=== PATIENT | female | born 1965 | race Caucasian/White ===

== ENCOUNTER → 2016-12-08 | Outpatient (CLI) | payer MEDICARE | END | disposition home or self-care (01) | LOC: PTMAIN 08:36 | PROVIDERS: ATTEND Otolaryngology | DX: J37.0 Chronic laryngitis (principal) | CPT/HCPCS: 31579 ==

== ENCOUNTER → 2016-12-22 | Outpatient (CLI) | payer MEDICARE ==
[2016-12-22 12:04] LABS: CH 31.1; CHCM 35.7; HCT 37.9 % (34.0-46.0); HDW 2.73; HGB 13.6 gm/dL (11.4-16.0); MCH 31.4 pg (25.0-35.0); MCHC 35.9 g/dL (31.0-37.0); MCV 87.4 fL (80.0-100.0); Mean Platelet Volume 6.7; RBC 4.34 m/uL (3.80-5.40); RDW 12.8 % (11.5-15.5); WBC 8.5 k/uL (3.8-10.6)
== END | disposition home or self-care (01) ==
LOC: LABWHC1 11:31
PROVIDERS: ATTEND Otolaryngology
DX: Z01.812 Encounter for preprocedural laboratory examination (principal)
CPT/HCPCS: 85027

== ENCOUNTER 2016-12-24 09:25 | Day surgery (SDC) | payer MEDICARE ==
[2016-12-22 11:31] VITALS: BMI 25.1
--- NOTE | 2016-12-24 06:21 | HP ---
DATE OF ADMISSION: Chief complaint is chronic laryngitis. HISTORY OF PRESENT ILLNESS: This patient is a pleasant 51-year-old female who was recently seen in my office complaining of having intermittent chronic laryngitis for the past several months. The patient is a nonsmoker and has not smoked or used any tobacco products for at least 10 years. In the past the patient has undergone multiple suspension microlaryngoscopies for evaluation of possible laryngeal and also nasopharyngeal lesions and all of her biopsies were essentially unremarkable. She has a history of GERD and also clears her throat frequently. She denies any referred otalgia, but has been told that she has COPD/chronic bronchitis. At the time that the patient was seen in my office, clinical examination including indirect laryngoscopy using the ( ) headlight and mirror revealed evidence of suspicious changes on both true vocal cords which resembled so-called pachydermia and in addition to this, there appeared to be a small cystic lesion located in the interarytenoid area. This cystic lesion was not visible except briefly on the examination. Because of the patient's past history of smoking it was recommended that she undergo a suspension microlaryngoscopy with biopsy of these lesions. Past medical history reveals that the patient has a known allergy to AMOXICILLIN and AUGMENTIN. Her current medications include [place], Flexeril, atenolol, Celexa, Elavil, Synthroid, and Crestor. Review of system reveals that the cardiovascular system is positive for hypertension. Respiratory system is positive for COPD/chronic bronchitis. Gastrointestinal system is positive for suspected GERD. Metabolic/endocrine system is positive for hypercholesterolemia and hypothyroidism. Musculoskeletal system is positive for osteoarthritis. Remainder of the review of systems is unremarkable. Previous surgeries include suspension microlaryngoscopy x3, triple upper endoscopy which included a suspension microlaryngoscopy, rigid esophagoscopy, and a rigid bronchoscopy, examination of the nasopharynx under anesthesia, foot surgery, D&C x2, lower back laminectomy, cholecystectomy. The patient ( ) , 3 C-sections, and 4 miscarriages. In addition to this, the patient has a history of fibromyalgia. PHYSICAL EXAMINATION: This patient is a 51-year-old female who is alert and cooperative. HEENT EXAMINATION: Patient is normocephalic. Tympanic membranes are normal. Middle ear spaces are free of any fluid or infection. Pupils equal, round, and reactive to light and accommodation. Extraocular movements are within normal limits. Intranasal examination reveals moderate to severe septal deviation with compensatory hypertrophy of the inferior turbinates and a moderate amount of mucus on the mucous membranes and draining down the posterior pharynx. Examination of oropharynx is essentially unremarkable. The findings of the examination of the hypopharynx and larynx are as described above in the history of present illness and will not be repeated here. Palpation of the neck, cranial nerves 2 through 12 and the remainder of the head and neck exam are all within normal limits. CHEST/CARDIOVASCULAR: Both lung tinajero are clear to percussion and auscultation. The patient is in regular sinus rhythm. S1 and S2 are present without evidence of any murmurs, S3s or S4s. Peripheral pulses are bilaterally symmetrical and within normal limits. ABDOMEN: There is no evidence of any masses, megaly or tenderness. The abdomen is soft. Skin is unremarkable. Musculoskeletal and neurological are within normal limits. PELVIC/RECTAL EXAM: The pelvic/rectal exam is deferred at this time because the patient has this done a regular basis at her family physician's office. The remainder of physical exam is essentially unremarkable. IMPRESSION: Chronic laryngitis, suspect laryngeal lesions. PLAN: The patient is scheduled undergo a suspension microlaryngoscopy with laryngeal biopsies. ATTENTION RNS IN THE PRESURGICAL AREA: I have not ordered any presurgical prophylactic antibiotics for this patient. If the pharmacy department sends any presurgical prophylactic antibiotics to the presurgical area for this patient they should be returned to the pharmacy and make sure that the patient's account is credited appropriately. The only medication that I have ordered for this patient to receive presurgically is 1000 mg of Ofirmev IV, to be given once an intravenous line has been established. I have explained the operation/procedure to the patient, including the risks, benefits, side effects, alternative therapies (including not receiving the proposed treatment or service), the likelihood of the patient achieving his/her goals, and potential recuperation problems for the procedure/sedation/analgesia, as well as any blood products, if indicated. I also explained to the patient the risks, benefits, and side effects of the alternatives, as well as the risks related to not receiving the proposed procedure, care treatment or services.
[~2016-12-24 09:25] MED LIST: DEXAMETHASONE SOD PHOSPHATE 10 MG/ML 1 ML VIAL IV ONE; HYDROmorphone 1 MG/ML 1 ML SYRINGE IVP PRN; LACTATED RINGERS 1,000 ML IV SCH; ONDANSETRON 4 MG/2 ML VIAL IVP ONE; Pre Op ABX Message 1 EACH MISC MISCELLANE ONE
[2016-12-24 10:16] LABS: Glucose,Whole Blood 108 mg/dL (75-99)
[2016-12-24] MEDS ORDERED: ACETAMINOPHEN IV (For NPO) 1,000 MG in EMPTY BAG 1 BAG IVPB ONE (10:30)
--- NOTE | 2016-12-24 11:21 | HP ---
DATE OF ADMISSION: ADDENDUM: PLAN: This patient is scheduled for a suspension microlaryngoscopy with biopsy of laryngeal lesions and CO2 laser of laryngeal lesions under general anesthesia. I have explained the operation/procedure to the patient, including the risks, benefits, side effects, alternative therapies (including not receiving the proposed treatment or service), the likelihood of the patient achieving his/her goals, and potential recuperation problems for the procedure/sedation/analgesia, as well as any blood products, if indicated. I also explained to the patient the risks, benefits, and side effects of the alternatives, as well as the risks related to not receiving the proposed procedure, care treatment or services.
[2016-12-24] MEDS ORDERED: DEXAMETHASONE SOD PHOS (MDV) 100 MG/10 ML VIAL ONE (12:04)
[2016-12-24] MEDS ORDERED: PROPOFOL 10 MG/ML 20 ML VIAL IV ONE (12:04)
[2016-12-24] MEDS ORDERED: SUCCINYLCHOLINE CHLORIDE 100 MG/5 ML SYR IV ONE (12:04)
[2016-12-24] MEDS ORDERED: fentaNYL (PF) 50 MCG/ML 2 ML AMP ONE (12:04)
[2016-12-24] MEDS ORDERED: LIDOCAINE 1% INJ 10MG/ML (20 ML MDV) ONE (12:04)
[2016-12-24] MEDS ORDERED: GLYCOPYRROLATE 0.2 MG/ML 2 ML VIAL ONE (12:04)
[2016-12-24] MEDS ORDERED: MIDAZOLAM 2 MG/2 ML VIAL ONE (12:04)
[2016-12-24 13:24] VITALS: TEMP 97.4
[2016-12-24 14:03] VITALS: RESP 16
[2016-12-24 14:46] VITALS: BP 130/76; PULSE 73
--- NOTE | 2016-12-28 08:35 | OP ---
DATE OF SERVICE: 12/24/2016 SURGEON: NGUYỄN QUIJANO MD SAMPLER TESTER: PREOPERATIVE DIAGNOSIS: Chronic laryngitis with lesions of the right and left true vocal cord. POSTOPERATIVE DIAGNOSIS: Chronic laryngitis with lesions of the right and left true vocal cord. OPERATION: Suspension microlaryngoscopy with biopsy of the right and left true vocal cord and CO2 laser ( ) of lesions of the right and left true vocal cord under general anesthesia. ANESTHESIA: General. ESTIMATED BLOOD LOSS: SPECIMENS REMOVED: COMPLICATIONS: None. OPERATIVE FINDINGS: DESCRIPTION OF PROCEDURE: The patient was placed on the operating table in the supine position. After uneventful induction and endotracheal intubation, satisfactory general anesthesia was obtained. Next, the patient was draped in the usual and customary fashion, following which the laryngoscope was then introduced into the patient's oropharynx and the entire hypopharynx, including the right and left piriform sinus, base of tongue, vallecula, epiglottis, were inspected and found to be free of any suspicious lesions. Next, the base of tongue was inspected and felt to be free of any suspicious lesions. Next, the tip of the laryngoscope was placed at the laryngeal introitus and advanced thus exposing both the right and left true vocal cords. Next, the Lewy apparatus was attached to the handle of the laryngoscope and the laryngoscope was suspended on the patient's chest. Next, using the Zeiss microscope and under magnified visualization, one could see that there was significant white plaques on the right and left true vocal cords. This has the appearance of pachydermia. Therefore, using a pair of microlaryngeal up-biting forceps, the right and left true vocal cords were biopsied in multiple spots respectively. The specimen was sent to pathology in formalin for permanent sectioning. Next, using the CO2 laser on the appropriate setting, the lesions on the right and left true vocal cord were vaporized in the usual and customary fashion. The patient was given 10 mg of Decadron intraoperatively to reduce any laryngeal edema. At this point, the procedure was terminated. There were no intraoperative complications. The patient tolerated the procedure well and was returned to the recovery room in satisfactory condition.
== END 2016-12-24 14:53 | disposition home or self-care (01) ==
LOC: OR 09:25
PROVIDERS: ATTEND Otolaryngology
DX: J37.0 Chronic laryngitis (principal); K21.9 Gastro-esophageal reflux disease without esophagitis; J38.7 Other diseases of larynx; I10 Essential (primary) hypertension; J42 Unspecified chronic bronchitis; E03.9 Hypothyroidism, unspecified; E78.00 Pure hypercholesterolemia, unspecified; M79.7 Fibromyalgia; M19.90 Unspecified osteoarthritis, unspecified site; J44.9 Chronic obstructive pulmonary disease, unspecified; Z79.899 Other long term (current) drug therapy; Z79.891 Long term (current) use of opiate analgesic; Z88.1 Allergy status to other antibiotic agents; Z88.0 Allergy status to penicillin; K13.29 Other disturbances of oral epithelium, including tongue
CPT/HCPCS: 31536; 88305; J2250; J1100 ×2; J2405; J2001; J3010; J0131; J0330; J2704

== ENCOUNTER 2018-02-01 20:40 | Emergency (ER) | payer MEDICARE ==
[2018-02-01 21:34] VITALS: BP 108/65; PULSE 103; RESP 18; TEMP 98.4
--- NOTE | 2018-02-01 22:58 | ED ---
General Adult HPI - General Chief complaint: Animal Bite Stated complaint: cat bite/infection Time Seen by Provider: 02/01/18 22:30 Source: patient, RN notes reviewed Mode of arrival: ambulatory Limitations: no limitations - History of Present Illness Initial comments: 52-year-old female presents to the emergency department for a chief complaint of cat bite to the left calf. Patient states this happened one day ago. Patient states has been draining somewhat and has been getting red. Patient denies fevers or chills at home. Patient denies feeling lethargic. Patient denies pain in the knee or ankle. Patient states her cat is an indoor cat and she can monitor it for 10 days. Cat has never been outside. Patient has no other complaints at this time including shortness of breath, chest pain, abdominal pain, nausea or vomiting, headache, or visual changes. - Related Data Home Medications Medication Instructions Recorded Confirmed Atenolol [Tenormin] 25 mg PO BID 02/20/14 12/24/16 Citalopram Hydrobromide [CeleXA] 40 mg PO DAILY 02/20/14 12/24/16 Cyclobenzaprine [Flexeril] 10 mg PO TID 02/20/14 12/24/16 Amitriptyline HCl [Elavil] 100 mg PO HS 07/12/15 12/24/16 Levothyroxine Sodium [Synthroid] 100 mcg PO DAILY 07/12/15 12/24/16 Omeprazole [PriLOSEC] 20 mg PO DAILY 07/12/15 12/24/16 Atorvastatin [Lipitor] 80 mg PO HS 01/25/16 12/24/16 HYDROcodone/APAP 7.5-325MG [[place] 1 tab PO BID PRN 01/25/16 12/24/16 7.5-325] Previous Rx's Medication Instructions Recorded Albuterol Nebulized [Ventolin 2.5 mg INHALATION RT-Q4H PRN #0 07/14/15 Nebulized] nebu Azithromycin [Zithromax Z-pack] 250 mg PO DIRECTED #6 tab NS 12/24/16 HYDROcodone/APAP 5-325MG [[place] 1 tab PO Q4HR PRN #20 tab NS 12/24/16 5-325] Doxycycline [Vibramycin] 100 mg PO Q12HR 14 Days capsule 02/01/18 Allergies Allergy/AdvReac Type Severity Reaction Status Date / Time amoxicillin [Amoxicillin] Allergy Intermediate SOB and Verified 02/01/18 21:31 rash amoxicillin trihydrate Allergy Rash/Hives, Verified 02/01/18 21:31 [From Augmentin] SOB potassium clavulanate Allergy Rash/Hives, Verified 02/01/18 21:31 [From Augmentin] and SOB Review of Systems ROS Statement: Those systems with pertinent positive or pertinent negative responses have been documented in the HPI. ROS Other: All systems not noted in ROS Statement are negative. Past Medical History Past Medical History: GERD/Reflux, Hyperlipidemia, Hypertension, Respiratory Disorder, Thyroid Disorder Additional Past Medical History / Comment(s): Emphysema; hypoglycemic- diet controlled History of Any Multi-Drug Resistant Organisms: None Reported Past Surgical History: Back Surgery, Section, Cholecystectomy, Orthopedic Surgery Additional Past Surgical History / Comment(s): back surgery x3, throat sugery x4 , x3, carpal tunnel release Past Anesthesia/Blood Transfusion Reactions: No Reported Reaction Past Psychological History: Anxiety, Depression Smoking Status: Former smoker Past Alcohol Use History: None Reported Past Drug Use History: None Reported - Past Family History Mother Family Medical History: No Reported History General Exam Limitations: no limitations General appearance: alert, in no apparent distress Head exam: Present: atraumatic, normocephalic, normal inspection Eye exam: Present: normal appearance ENT exam: Present: normal exam, mucous membranes moist Neck exam: Present: normal inspection, full ROM. Absent: tenderness, meningismus, lymphadenopathy Respiratory exam: Present: normal lung sounds bilaterally. Absent: respiratory distress, wheezes, rales, rhonchi, stridor Cardiovascular Exam: Present: regular rate, normal rhythm, normal heart sounds. Absent: systolic murmur, diastolic murmur, rubs, gallop, clicks Extremities exam: Present: full ROM (Full range of motion of the left knee and left ankle.), tenderness (Minor tenderness to the Bites.), other (Patient has 2 Bites on the posterior left calf that appear to be infected. Mild cellulitis about 4 cm x 4 cm. No abscess is noted. No streaking redness.) Course Vital Signs 02/01/18 21:32 Temperature 98.4 F Pulse Rate 103 H Respiratory 18 Rate Blood Pressure 108/65 O2 Sat by Pulse 95 Oximetry Medical Decision Making - Medical Decision Making 52-year-old female process to the emergency department for chief complaint Bite 2 days. Patient was bit by her cat yesterday. She states it has gotten more red since that time. No fevers or chills at home. On exam patient does have a mild cellulitis about 4 cm x 4 cm. 2 Bites are noted on the left posterior calf. No drainage at this time. No signs of abscesses or streaking redness. No pain in the knee or ankle. Cellulitis was circled with a marker for patient. She is ALLERGIC to penicillin so was given doxycycline. Patient was educated to return to the emergency Department if the redness began spreading past the marking, or if she has fevers or worsening symptoms. Otherwise she will follow- up with primary care. Patient was contacted after departure to notify her that she did not receive her tetanus shot. Patient will return to the emergency department tomorrow or to her primary care doctor for the shot. Disposition Clinical Impression: Cat bite, Cellulitis Disposition: HOME SELF-CARE Condition: Good Instructions: Animal Bite (ED) Additional Instructions: Please take antibiotic as directed. Please monitor for spreading redness or streaking redness up the leg and return if these occur. Return if you develop fever. No motrin or tylenol for pain. Follow up with primary care in 1-2 days. Prescriptions: Doxycycline [Vibramycin] 100 mg PO Q12HR 14 Days capsule Is patient prescribed a controlled substance at d/c from ED?: No Referrals: Aarti Blackwell MD [Primary Care Provider] - 1-2 days Time of Disposition: 22:55
== END 2018-02-01 23:05 | disposition home or self-care (01) ==
LOC: EC 20:40
DX: S81.852A Open bite, left lower leg, initial encounter (principal); L03.116 Cellulitis of left lower limb; K21.9 Gastro-esophageal reflux disease without esophagitis; E78.5 Hyperlipidemia, unspecified; I10 Essential (primary) hypertension; E07.9 Disorder of thyroid, unspecified; F41.9 Anxiety disorder, unspecified; F32.9 Major depressive disorder, single episode, unspecified; Z87.891 Personal history of nicotine dependence; Z98.890 Other specified postprocedural states; Z79.899 Other long term (current) drug therapy; Z88.0 Allergy status to penicillin; W55.01XA Bitten by cat, initial encounter
CPT/HCPCS: 99283

== ENCOUNTER → 2018-11-13 | Outpatient (CLI) | payer MEDICARE ==
--- NOTE | 2018-11-13 11:36 | XR ---
Cervical spine HISTORY: Neck pain 5 views of the cervical spine There is no significant foraminal encroachment on oblique views. There is multilevel facet arthropath y present. Cervical vertebral bodies show preserved height and alignment. There is mild multilevel sp ondylosis. Loss of disc height present at C5-6. Straightening of the normal cervical lordosis may be due to muscle spasm. Prevertebral soft tissues are normal. Patient is edentulous. Suspect an underlyi ng scoliosis in the thoracic spine. IMPRESSION: Degenerative disc disease. Facet arthropathy. Additional findings above.
== END | disposition home or self-care (01) ==
LOC: RADXRMAIN 10:54
PROVIDERS: ATTEND Physical Medicine & Rehabilitation
DX: M50.30 Other cervical disc degeneration, unspecified cervical region (principal); M47.812 Spondylosis without myelopathy or radiculopathy, cervical region; M46.92 Unspecified inflammatory spondylopathy, cervical region
CPT/HCPCS: 72050

== ENCOUNTER → 2018-12-14 | Outpatient (CLI) | payer MEDICARE ==
--- NOTE | 2018-12-14 15:10 | CT ---
EXAMINATION TYPE: CT chest wo con DATE OF EXAM: 12/14/2018 COMPARISON: None HISTORY: RUQ/CHEST PAIN WITH INSPIRATION CT DLP: 760.3 mGycm, Automated exposure control for dose reduction was used. CONTRAST: None TECHNIQUE: Axial images were obtained at 1 mm thick sections at 10 mm intervals. This will limit po rtions of the examination which may not be visualized within the [id number]. Images were obtained in the prone and supine views. FINDINGS: Portion of the thyroid visualized is normal. No suspicious lung nodules or focal infiltrat es are present. Emphysematous changes are present within the lung tinajero. No enlarged mediastinal or hilar adenopathy is evident. The ascending aorta diameter at the level o f the main pulmonary artery is 3.5 cm. The main pulmonary artery diameter at the bifurcation is 2.5 cm. Minimal coronary artery calcification is noted. Limited CT sections are obtained through the upper abdomen. Abdomen is essentially unremarkable. IMPRESSIONS: 1. Emphysematous changes compatible COPD.
== END ==
LOC: RADCTMAIN 13:06
PROVIDERS: ATTEND Internal Medicine
DX: J43.9 Emphysema, unspecified (principal)
CPT/HCPCS: 71250

== ENCOUNTER 2019-10-11 14:13 | Inpatient (IN) | payer MEDICARE ==
[2019-10-11] MEDS ORDERED: VANCOMYCIN IV PER PHARMACY 1 EACH MISC MISCELLANE PRN (14:17)
[2019-10-11] MEDS ORDERED: HYDROcodone/APAP 7.5-325MG 1 EACH TAB PO PRN (15:24)
[2019-10-11] MEDS ORDERED: VANCOMYCIN 1,500 MG in SODIUM CHLORIDE 0.9% 250 ML IVPB ONE (15:30)
[2019-10-11] MEDS: HYDROcodone/APAP 7.5-325MG 1 EACH TAB PO PRN ×2 (15:41→22:01)
[2019-10-11 16:27] LABS: African American GFR (CKD) >90 (>60 ml/min/1.73 sqM); Anion Gap 7 mmol/L; Blood Urea Nitrogen 8 mg/dL (7-17); Calcium 9.4 mg/dL (8.4-10.2); Carbon Dioxide 28 mmol/L (22-30); Chloride 102 mmol/L (98-107); Glucose 99 mg/dL (74-99); Non-African American GFR(CKD) 84 (>60 ml/min/1.73 sqM); Potassium 4.3 mmol/L (3.5-5.1); Sodium 137 mmol/L (137-145)
[2019-10-11] MEDS: HYDROmorphone 0.5 MG/0.5 ML SYRINGE IVP PRN ×2 (17:47→23:37)
[2019-10-11 20:08] LABS: Basophils % (A) 0 %; Eosinophils # (A) 0.2 k/uL (0-0.7); Eosinophils % (A) 1 %; HCT 39.1 % (34.0-46.0); HGB 13.2 gm/dL (11.4-16.0); Lymphocytes # (A) 3.1 k/uL (1.0-4.8); Lymphocytes % (A) 28 %; MCHC 33.7 g/dL (31.0-37.0); MCV 91.7 fL (80.0-100.0); Monocytes # (A) 0.7 k/uL (0-1.0); Monocytes % (A) 6 %; Neutrophils # (A) 6.8 k/uL (1.3-7.7); Neutrophils % (A) 62 %; Platelet Count 357 k/uL (150-450); RBC 4.26 m/uL (3.80-5.40); RDW 13.1 % (11.5-15.5); WBC 11.1 k/uL (3.8-10.6)
[2019-10-11] MEDS ORDERED: BUTALB/APAP/CAFF 50-325-40MG TAB PO PRN (20:59)
[2019-10-11] MEDS ORDERED: SUMAtriptan SUCCINATE 50 MG TAB PO PRN (20:59)
--- NOTE | 2019-10-11 22:01 | P.HPOR ---
History of Present Illness H&P Date: 10/11/19 Chief Complaint: Right thumb/hand pain The patient is a 54-year-old female who underwent outpatient right trigger thumb release on 09/24/19. She reports persistent pain and swelling since surgery. When evaluated in the office last week, her thumb had a normal postoperative a ppearance. She presented for reevaluation today, complaining of increasing pain with redness progressing up her arm. Her exam was consistent with an acute postoperative cellulitis and she was sent to the hospital for IV antibiotics. She states that the pain is constant and does not seem to be worsened by position or use. She takes [place] 7.5 mg daily at bedtime for chronic back pain. She denies fevers, chills, recent sick contacts or feeling ill herself. Past Medical History Past Medical History: GERD/Reflux, Hyperlipidemia, Hypertension, Respiratory Disorder, Thyroid Disorder Additional Past Medical History / Comment(s): Emphysema; hypoglycemic- diet controlled History of Any Multi-Drug Resistant Organisms: None Reported Past Surgical History: Back Surgery, Section, Cholecystectomy, Orthopedic Surgery Additional Past Surgical History / Comment(s): back surgery x3, throat sugery x5 , x3, carpal tunnel release, laser eye surgery Past Anesthesia/Blood Transfusion Reactions: No Reported Reaction Past Psychological History: Anxiety, Depression Smoking Status: Former smoker Past Alcohol Use History: None Reported Additional Past Alcohol Use History / Comment(s): smoked 1 1/2-2 pkgs for 30 yrs; quit 2006 Past Drug Use History: None Reported Additional Drug Use History / Comment(s): currantly smokes marijuana twice a day - Past Family History Mother Family Medical History: No Reported History Medications and Allergies Home Medications Medication Instructions Recorded Confirmed Type Citalopram Hydrobromide [CeleXA] 40 mg PO DAILY 02/20/14 10/11/19 History Cyclobenzaprine [Flexeril] 10 mg PO TID 02/20/14 10/11/19 History Amitriptyline HCl [Elavil] 100 mg PO HS 07/12/15 10/11/19 History HYDROcodone/APAP 7.5-325MG [[place] 1 tab PO BID 01/25/16 10/11/19 History 7.5-325] Brimonidine Tartrate [Alphagan P 1 drop BOTH EYES BID 10/11/19 10/11/19 History 0.2% Ophth Soln] Butalb/APAP/Caff 50-325-40Mg 1 - 2 tab PO DAILY PRN 10/11/19 10/11/19 History [Fioricet 50-325-40] Latanoprost/Pf [Latanoprost 0.005% 1 drop BOTH EYES HS 10/11/19 10/11/19 History Eye Drop] SUMAtriptan SUCCINATE [Imitrex] 50 mg PO DAILY PRN 10/11/19 10/11/19 History Sucralfate [Carafate] 1 gm PO DAILY 10/11/19 10/11/19 History Allergies Allergy/AdvReac Type Severity Reaction Status Date / Time amoxicillin [Amoxicillin] Allergy Intermediate SOB and Verified 10/11/19 17:29 rash amoxicillin trihydrate Allergy Rash/Hives, Verified 10/11/19 17:29 [From Augmentin] SOB potassium clavulanate Allergy Rash/Hives, Verified 10/11/19 17:29 [From Augmentin] and SOB Physical Examination Constitution: Normal stature and development HEENT: Normocephalic & atraumatic Cardiovascular: Regular rate & rhythm Pulmonary: Unlabored respiratory effort without audible wheeze or conversational dyspnea Abdomen: Soft, nontender & nondistended Integumentary: No rashes or skin lesions noted in the examined areas Psychiatric: Patient is alert & oriented to person, place, time and purpose. Musculoskeletal: Moderate edema on the volar aspect of the thumb, extending into the thenar eminence and volar wrist. There is mild, fairly well-demarcated erythema in this distribution with subtle lymphangitic streaking up the volar forearm. She is diffusely tender to palpation, but this is not significantly worse in any one particular area. There is no discrete fluctuance. Incision is closed and healing. There is no drainage. She is able to perform active IP and MCP motion, though she does report pain. No sign of significant discomfort with passive IP, MCP or wrist motion, but these again elicit pain. Intact light touch sensation throughout the thumb and hand without focal deficit. The thumb and hand are warm and well-perfused with brisk capillary refill. Results - Labs Labs: Abnormal Lab Results - Last 24 Hours (Table) 10/11/19 10/11/19 Range/Units 15:32 15:32 WBC 11.1 H (3.8-10.6) k/uL C-Reactive Protein 42.1 H (<10.0) mg/L H & H 10/11/19 Range/Units 15:32 Hgb 13.2 (11.4-16.0) gm/dL Hct 39.1 (34.0-46.0) % Result Diagrams: 10/11/19 15:32 10/11/19 15:32 Assessment and Plan Assessment: Impression: Postop cellulitis - right thumb, hand and wrist Status post right trigger thumb release on 09/24/19 (POD #17) Plan: The clinical appearance is consistent with cellulitis, though there is potential for a deeper abscess/suppurative flexor tenosynovitis. We will obtain baseline labs and begin empiric IV antibiotics with vancomycin. Consult infectious disease. PRN pain management. We will continue to monitor the hand closely. If this fails to respond to the antibiotics, we will consider surgical debridement. NPO after midnight. Azar Costa D.O. [facility]
[2019-10-11] MEDS: AMITRIPTYLINE HCL 50 MG TAB PO SCH (22:05)
[2019-10-11] MEDS: CYCLOBENZAPRINE 10 MG TAB PO SCH (22:05)
[2019-10-11] MEDS: LATANOPROST 0.005% OPHTH DROPS 2.5 ML BTL BOTH EYES SCH (22:06)
[2019-10-11] MEDS: BRIMONIDINE TARTRATE 0.2% DROPS 5 ML BTL BOTH EYES SCH (22:06)
[2019-10-11 22:32] LABS: Erythrocyte Sedimentation Rate 30 mm/hr (0-20)
--- NOTE | 2019-10-11 23:51 | P.CONS ---
History of Present Illness - Reason for Consult Consult date: 10/11/19 right hand cellulitis Requesting physician: Azar Sebas Igor - Chief Complaint right thumb and arm cellulitis - History of Present Illness patient is a 54 to female who is status post right thumb trigger finger release on September 24, 2019 patient apparently seem to have problem with pain postoperatively that has been getting worse patient describing the pain to be throbbing to dull aching almost 10 out of 10 when severe she noticed more swelling and redness with redness swelling to the right forearm, patient also mentions some clear drainage from incision since her surgery which apparently was likely darker over the last few days however currently it has stopped, patient was evaluated by orthopedic surgery with concern for wound infection and cellulitis patient has been admitted to hospital for IV by therapy and possible surgical release and drainage patient on admission hospital has been afebrile white blood cell elevated 11,000, she has been started on vancomycin infectious disease was consulted for further recommendation about antibiotic therapy Review of Systems Positive point has been mentioned in HPI rest of the systems are negative Past Medical History Past Medical History: GERD/Reflux, Hyperlipidemia, Hypertension, Respiratory Disorder, Thyroid Disorder Additional Past Medical History / Comment(s): Emphysema; hypoglycemic- diet controlled History of Any Multi-Drug Resistant Organisms: None Reported Past Surgical History: Back Surgery, Section, Cholecystectomy, Orthopedic Surgery Additional Past Surgical History / Comment(s): back surgery x3, throat sugery x5 , x3, carpal tunnel release, laser eye surgery Past Anesthesia/Blood Transfusion Reactions: No Reported Reaction Past Psychological History: Anxiety, Depression Smoking Status: Former smoker Past Alcohol Use History: None Reported Additional Past Alcohol Use History / Comment(s): smoked 1 1/2-2 pkgs for 30 yrs; quit 2006 Past Drug Use History: None Reported Additional Drug Use History / Comment(s): currantly smokes marijuana twice a day - Past Family History Mother Family Medical History: No Reported History Medications and Allergies Home Medications Medication Instructions Recorded Confirmed Type Citalopram Hydrobromide [CeleXA] 40 mg PO DAILY 02/20/14 10/11/19 History Cyclobenzaprine [Flexeril] 10 mg PO TID 02/20/14 10/11/19 History Amitriptyline HCl [Elavil] 100 mg PO HS 07/12/15 10/11/19 History HYDROcodone/APAP 7.5-325MG [[place] 1 tab PO BID 01/25/16 10/11/19 History 7.5-325] Brimonidine Tartrate [Alphagan P 1 drop BOTH EYES BID 10/11/19 10/11/19 History 0.2% Ophth Soln] Butalb/APAP/Caff 50-325-40Mg 1 - 2 tab PO DAILY PRN 10/11/19 10/11/19 History [Fioricet 50-325-40] Latanoprost/Pf [Latanoprost 0.005% 1 drop BOTH EYES HS 10/11/19 10/11/19 History Eye Drop] SUMAtriptan SUCCINATE [Imitrex] 50 mg PO DAILY PRN 10/11/19 10/11/19 History Sucralfate [Carafate] 1 gm PO DAILY 10/11/19 10/11/19 History Allergies Allergy/AdvReac Type Severity Reaction Status Date / Time amoxicillin [Amoxicillin] Allergy Intermediate SOB and Verified 10/11/19 17:29 rash amoxicillin trihydrate Allergy Rash/Hives, Verified 10/11/19 17:29 [From Augmentin] SOB potassium clavulanate Allergy Rash/Hives, Verified 10/11/19 17:29 [From Augmentin] and SOB Physical Exam Vitals: Vital Signs Temp Pulse Resp BP Pulse Ox 10/11/19 21:07 98.5 F 108 H 18 111/65 93 L Intake and Output 10/11/19 10/11/19 10/11/19 06:59 14:59 22:59 Other: Voiding Method Toilet Weight 82.024 kg GENERAL DESCRIPTION: Middle-aged female lying in bed, no distress. No tachypnea or accessory muscle of respiration use. HEENT: Shows Pallor , no scleral icterus. Oral mucous membrane is dry. NECK: Trachea central, no thyromegaly. LUNGS: Unlabored breathing. Clear to auscultation anteriorly. No wheeze or crackle. HEART: S1, S2, regular rate and rhythm. ABDOMEN: Soft, no tenderness , guarding or rigidity EXTREMITIES: Right thumb base did have swelling no open wound or any drainage with some redness spreading to the right forearm. SKIN: No rash, no masses palpable. NEUROLOGICAL: The patient is awake, alert, oriented x3, mood and affect normal. Results CBC & Chem 7: 03/19/20 15:32 10/11/19 15:32 Labs: Abnormal Lab Results - Last 24 Hours (Table) 10/11/19 10/11/19 Range/Units 15:32 15:32 WBC 11.1 H (3.8-10.6) k/uL C-Reactive Protein 42.1 H (<10.0) mg/L Assessment and Plan Assessment: patient with right upper extremity cellulitis in this patient who recently did have a right thumb trigger release surgery with the patient describing some drainage which was slightly darker concern for underlying abscess not entirely excluded likely from gram-positive skin to such as strep and staph (1) Right arm cellulitis Current Visit: Yes Status: Acute Code(s): L03.113 - CELLULITIS OF RIGHT UPPER LIMB SNOMED Code(s): 790330784 Plan: 1-vancomycin pharmacy to dose her with a target trough of 15 while watching her kidney function and Vanco trough closely. 2-awaiting physical department and deep cultures in the a.m. We will follow on clinical condition and cultures to further adjust medication if needed Thank you for this consultation we will follow the patient along with you Time with Patient: Greater than 30
[2019-10-12] MEDS: VANCOMYCIN 1,500 MG in SODIUM CHLORIDE 0.9% 250 ML IVPB SCH ×2 (03:55→16:19)
[2019-10-12] MEDS: HYDROcodone/APAP 7.5-325MG 1 EACH TAB PO PRN ×3 (04:13→17:54)
--- NOTE | 2019-10-12 07:11 | P.PN ---
Subjective Progress Note Date: 10/12/19 The patient reports persistent pain in the thumb and hand - not significantly changed. She states that there is some numbness in the fingers. Objective - Vital Signs Vital signs: Vital Signs Temp 97.9 F 10/12/19 02:04 Pulse 108 H 10/12/19 04:00 Resp 18 10/12/19 04:00 BP 125/77 10/12/19 02:04 Pulse Ox 92 L 10/12/19 02:04 Intake & Output 10/11/19 10/12/19 10/12/19 18:59 06:59 18:59 Weight 82.024 kg Other: Voiding Method Toilet - Exam Patient was sleeping soundly upon entering. Right hand: Mild interval progression of the edema in the thumb. Moderate tenderness to palpation at the thenar eminence. Pain with passive thumb IP and MCP motion. Intact but subjectively diminished sensation in all the digits (most prominent in the thumb). - Labs CBC & Chem 7: 10/11/19 15:32 10/11/19 15:32 Labs: Abnormal Lab Results - Last 24 Hours (Table) 10/11/19 10/11/19 Range/Units 15:32 15:32 WBC 11.1 H (3.8-10.6) k/uL ESR 30 H (0-20) mm/hr C-Reactive Protein 42.1 H (<10.0) mg/L Assessment and Plan Assessment: Impression: Postop cellulitis with likely evolving abscess - right thumb, hand and wrist Status post right trigger thumb release on 09/24/19 (POD #18) Plan: I discussed the clinical findings with the patient. Based on the appearance of her hand and its clinical progression, I recommended proceeding with surgical debridement. We discussed the operative plan, along with associated risks/benefits; the patient expressed understanding and was in agreement to proceed with surgery. Continue NPO & PRN pain management. Plan for surgery today. Azar Costa D.O. [facility]
[2019-10-12] MEDS: SUCRALFATE 1 GM TAB PO SCH (08:24)
[2019-10-12] MEDS: CITALOPRAM HYDROBROMIDE 20 MG TAB PO SCH (08:40)
[2019-10-12] MEDS: CYCLOBENZAPRINE 10 MG TAB PO SCH ×3 (08:41→23:08)
[2019-10-12] MEDS: BRIMONIDINE TARTRATE 0.2% DROPS 5 ML BTL BOTH EYES SCH ×2 (08:42→20:08)
[2019-10-12] MEDS ORDERED: IV FLUID CONTINUATION 1,000 ML IV ONE (11:40)
[2019-10-12] MEDS ORDERED: MIDAZOLAM 2 MG/2 ML VIAL IVP ONE (11:48)
--- NOTE | 2019-10-12 12:13 | P.CONS ---
History of Present Illness - History of Present Illness i came to see pt and she was at surgery , we will follow up Past Medical History Past Medical History: GERD/Reflux, Hyperlipidemia, Hypertension, Respiratory Disorder, Thyroid Disorder Additional Past Medical History / Comment(s): Emphysema; hypoglycemic- diet controlled History of Any Multi-Drug Resistant Organisms: None Reported Past Surgical History: Back Surgery, Section, Cholecystectomy, Orthopedic Surgery Additional Past Surgical History / Comment(s): back surgery x3, throat sugery x5 , x3, carpal tunnel release, laser eye surgery Past Anesthesia/Blood Transfusion Reactions: No Reported Reaction Past Psychological History: Anxiety, Depression Smoking Status: Former smoker Past Alcohol Use History: None Reported Additional Past Alcohol Use History / Comment(s): smoked 1 1/2-2 pkgs for 30 yrs; quit 2006 Past Drug Use History: None Reported Additional Drug Use History / Comment(s): currantly smokes marijuana twice a day - Past Family History Mother Family Medical History: No Reported History Medications and Allergies Home Medications Medication Instructions Recorded Confirmed Type Citalopram Hydrobromide [CeleXA] 40 mg PO DAILY 02/20/14 10/11/19 History Cyclobenzaprine [Flexeril] 10 mg PO TID 02/20/14 10/11/19 History Amitriptyline HCl [Elavil] 100 mg PO HS 07/12/15 10/11/19 History HYDROcodone/APAP 7.5-325MG [[place] 1 tab PO BID 01/25/16 10/11/19 History 7.5-325] Brimonidine Tartrate [Alphagan P 1 drop BOTH EYES BID 10/11/19 10/11/19 History 0.2% Ophth Soln] Butalb/APAP/Caff 50-325-40Mg 1 - 2 tab PO DAILY PRN 10/11/19 10/11/19 History [Fioricet 50-325-40] Latanoprost/Pf [Latanoprost 0.005% 1 drop BOTH EYES HS 10/11/19 10/11/19 History Eye Drop] SUMAtriptan SUCCINATE [Imitrex] 50 mg PO DAILY PRN 10/11/19 10/11/19 History Sucralfate [Carafate] 1 gm PO DAILY 10/11/19 10/11/19 History Allergies Allergy/AdvReac Type Severity Reaction Status Date / Time amoxicillin [Amoxicillin] Allergy Intermediate SOB and Verified 10/11/19 17:29 rash amoxicillin trihydrate Allergy Rash/Hives, Verified 10/11/19 17:29 [From Augmentin] SOB potassium clavulanate Allergy Rash/Hives, Verified 10/11/19 17:29 [From Augmentin] and SOB Physical Exam Vitals: Vital Signs Temp Pulse Resp BP Pulse Ox 10/12/19 07:00 98.3 F 61 16 115/69 97 10/12/19 04:00 108 H 18 10/12/19 02:04 97.9 F 108 H 18 125/77 92 L 10/11/19 23:55 108 H 18 10/11/19 21:07 98.5 F 108 H 18 111/65 93 L Intake and Output 10/11/19 10/12/19 10/12/19 22:59 06:59 14:59 Other: Voiding Method Toilet Toilet Toilet Weight 82.024 kg Results CBC & Chem 7: 10/11/19 15:32 10/11/19 15:32 Labs: Abnormal Lab Results - Last 24 Hours (Table) 10/11/19 10/11/19 Range/Units 15:32 15:32 WBC 11.1 H (3.8-10.6) k/uL ESR 30 H (0-20) mm/hr C-Reactive Protein 42.1 H (<10.0) mg/L
--- NOTE | 2019-10-12 12:24 | P.ANPRN ---
Procedure Note - Anesthesia - Nerve Block Performed Right Axillary Single Time Out Performed: Yes Date of Procedure: 10/12/19 Procedure Start Time: 11:48 Procedure Stop Time: 12:02 Location of Patient: PreOp Indication: Acute Post-Operative Pain, Requested by Surgeon Sedation Type: Sedate with meaningful contact maintained Preparation: Sterile Prep, Sterile Dressing Position: Supine Catheter: None Needle Types: Pajunk Needle Gauge: 20 Ultrasound used to visualize needle placement: Yes Ultrasound used to observe medication spread: Yes Injectate: 0.5% Ropivacaine (see comment for volume) (30 ml + decadron 10 mg) Blood Aspirated: No Pain Paresthesia on Injection Noted: No Resistance on Injection: Normal Image Stored and Saved: Yes Events: Uneventful and Well Tolerated
[2019-10-12] MEDS ORDERED: PROPOFOL 10 MG/ML 20 ML VIAL IV ONE (12:45)
[2019-10-12] MEDS ORDERED: fentaNYL (PF) 50 MCG/ML 2 ML AMP ONE (12:45)
[2019-10-12] MEDS ORDERED: MIDAZOLAM 2 MG/2 ML VIAL ONE (12:45)
[2019-10-12] MEDS ORDERED: LACTATED RINGERS 1,000 ML IV ONE (14:37)
[2019-10-12] MEDS ORDERED: ONDANSETRON 4 MG/2 ML VIAL IVP PRN (16:04)
--- NOTE | 2019-10-12 16:14 | P.OP ---
Date of Procedure: 10/12/19 Preoperative Diagnosis: 1. Right thumb cellulitis with likely deep abscess 2. Status post right trigger thumb release Postoperative Diagnosis: 1. Right thumb cellulitis with thenar abscess 2. Suppurative flexor tenosynovitis - right thumb, hand & wrist 3. Status post right trigger thumb release Procedure(s) Performed: 1. Incision and drainage of right thumb abscess 2. Open right carpal tunnel release 3. Right median neurolysis 4. Flexor tenosynovectomy - right wrist: * Palmaris longus * Flexor pollicis longus * Flexor digitorum superficialis (FDS) index, middle, ring and small fingers * Flexor digitorum profundus (FDP) index, middle, ring and small fingers Anesthesia: MICHA, regional Surgeon: Azar Costa Estimated Blood Loss (ml): 20 Pathology: other (Wound cultures from thumb & carpal tunnel) Condition: stable Disposition: PACU Indications for Procedure: The patient is a 54-year-old female who previously underwent outpatient right trigger thumb release. At postop follow-up visits, she demonstrated progressive pain and swelling, as well as paresthesias across the thumb and fingers. Initially treated with IV antibiotics, the symptoms progressed and surgical debridement was recommended. Risks and benefits were reviewed, including wound healing problems, adhesions and possible need for additional surgery. She expressed understanding and was in agreement to proceed with surgery. Consent forms were signed. The operative site was confirmed and marked. Operative Findings: Abundant thin, cloudy yellow fluid throughout the FPL (flexor pollicis longus) flexor sheath, extending into the carpal tunnel and along the digital flexors at the wrist and distal forearm. Moderate thick, purulent fibrinous exudate around all the tendons. Description of Procedure: The patient was positioned supine with the right arm on a hand table; all bony prominences were well-padded. General anesthesia was administered uneventfully. A tourniquet was applied to the operative limb, which was then prepped and draped in standard, sterile fashion. A time-out was performed, confirming patient identifiers, the operative side, site and the procedure to be performed: all team members expressed agreement. The limb was exsanguinated with gravity and the tourniquet was inflated. Loupe magnification was utilized throughout the case for optimum visualization. The previous incision at the thumb MCP flexion crease was extended proximally and distally in a Miguel fashion. The skin was sharply incised. Abundant thin, cloudy yellow fluid was immediately encountered. A swab culture was obtained. The wound was explored with blunt, spreading dissection. The neurovascular bundles on both sides were identified and protected. The nylon sutures from the previous FPL repair were intact and were left in place. Thick, fibrinous exudative tissue was present along the flexor sheath, extending proximally and distally. The fluid tracked down the FPL tendon into the thenar space. This was explored and there was no evidence of myonecrosis or intramuscular abscess. The muscle appeared healthy. Given the amount of edema present in the wrist, the decision was made to make a second incision to explore proximally. An extended carpal tunnel incision was marked, extending obliquely across the wrist crease. Similar fluid was again encountered. The palmaris longus tendon was scarred down adhesions were sharply released and the tendon was mobilized. The median nerve was identified - thick infectious exudative tissue was noted along its course, causing constriction at multiple locations. An open carpal tunnel release was performed. The transverse carpal ligament was noted to be quite thick. A median neurolysis was performed, carefully resecting the unhealthy appearing fibrinous tissue, which also improve the mobility of the nerve. The flexor tendons were markedly edematous, with thick tenosynovial tissue encasing each one. A thorough tenolysis was performed, resecting thickened ti ssue and individually mobilizing the palmaris longus, FPL and the FDS and FDP tendons of the index, middle, ring and small fingers. Each tendon was mobilized individually and found to be intact without obvious damage. Another pocket of infected fluid was identified at the musculotendinous junction of the FPL, along the volar radius. Another swab culture was obtained, along with a sample of thickened yellow fibrinous tissue. A combination of sharp and mechanical debridement was used to resect unhealthy tissue and remove purulent material. The wound was copiously irrigated with 3 L normal saline using cystoscopy tubing and gravity inflow. The surrounding soft tissues were mechanically debrided with curettes and rongeurs. Once adequate debridement had been achieved, the tourniquet was released (after 80 minutes at 250 mmHg). Good hemostasis was obtained with manual pressure and bipolar cautery. The proximal incision was loosely closed over a 10 mm channel drain. A small strip of the end of the drain was cut and inserted into the distal wound as a mechanical drain. Both incisions were closed with interrupted 4-0 Prolene sutures. Soft, sterile dressings of Adaptic, 4 x 4's, Kerlix and Coban were applied. All sponge, needle and instrument counts were correct at the end of the case. The patient tolerated the procedure well and was taken to recovery in stable condition. The patient will be returned to the floor for continued monitoring and IV antibiotics, to be guided by intraoperative cultures.
[2019-10-12 20:07] LABS: Glucose,Whole Blood 131 mg/dL (75-99)
[2019-10-12] MEDS: LATANOPROST 0.005% OPHTH DROPS 2.5 ML BTL BOTH EYES SCH (20:08)
[2019-10-12] MEDS: AMITRIPTYLINE HCL 50 MG TAB PO SCH (20:09)
--- NOTE | 2019-10-12 20:38 | PN ---
PROGRESS NOTE DATE OF SERVICE: 10/12/2019 REASON FOR FOLLOWUP: Right thumb infection with cellulitis. INTERVAL HISTORY: The patient is currently afebrile. The patient was taken to the OR this afternoon in this patient who is status post I and D of the right thumb abscess, open right carpal tunnel release. The patient tolerated the procedure. He was seen in the postop where the patient's pain is currently controlled. Denies having any chest pain, cough, no abdominal pain or diarrhea. PHYSICAL EXAMINATION: Blood pressure 129/80 with a pulse of 86, temperature 97.7, she is 98% on room air. The patient is a middle-aged female lying in bed in no distress. Respiratory system: Unlabored breathing. Clear to auscultation anteriorly. Heart S1, S2. Regular rate and rhythm. Abdomen soft, no tenderness. Right hand is currently dressed up. No obvious drainage on the dressing. LABS: Cultures currently pending. DIAGNOSTIC IMPRESSION AND PLAN: Patient with right thumb trigger release postsurgical patient is status post drainage of the abscess. Cultures have been obtained. Those will be followed. The patient is covered with vancomycin to continue, adjusting antibiotic further based on the culture report and clinical response. Continue supportive care. MMODL / IJN: [id number] /
[2019-10-13] MEDS: VANCOMYCIN 1,500 MG in SODIUM CHLORIDE 0.9% 250 ML IVPB SCH ×2 (03:40→16:31)
[2019-10-13] MEDS: HYDROcodone/APAP 7.5-325MG 1 EACH TAB PO PRN ×3 (06:18→18:04)
[2019-10-13 07:10] LABS: African American GFR (CKD) >90 (>60 ml/min/1.73 sqM); Non-African American GFR(CKD) >90 (>60 ml/min/1.73 sqM)
[2019-10-13] MEDS: CYCLOBENZAPRINE 10 MG TAB PO SCH ×3 (07:59→20:39)
[2019-10-13] MEDS: SUCRALFATE 1 GM TAB PO SCH (07:59)
[2019-10-13] MEDS: CITALOPRAM HYDROBROMIDE 20 MG TAB PO SCH (07:59)
[2019-10-13] MEDS: BRIMONIDINE TARTRATE 0.2% DROPS 5 ML BTL BOTH EYES SCH ×2 (08:00→20:40)
[2019-10-13] MEDS: ENOXAPARIN 40 MG/0.4 ML SYRINGE SQ SCH (08:00)
--- NOTE | 2019-10-13 11:13 | P.PN ---
<Clive Corey Rosita - Last Filed: 10/13/19 11:08> Subjective Progress Note Date: 10/13/19 Principal diagnosis: Status post 1. Incision and drainage of right thumb abscess 2. Open right carpal tunnel release 3. Right median neurolysis 4. Flexor tenosynovectomy - right wrist: * Palmaris longus * Flexor pollicis longus * Flexor digitorum superficialis (FDS) index, middle, ring and small fingers * Flexor digitorum profundus (FDP) index, middle, ring and small fingers Patient is a pleasant 54-year-old female seen at bedside this morning. She has postop day #1 from Incision and drainage of right thumb abscess, Open right carpal tunnel release, Right median neurolysis, and Flexor tenosynovectomy - right wrist. She states her pain and swelling is improved versus preoperative. She has no new complaints including numbness, tingling, fever, chills, chest pain or shortness of breath. Objective - Vital Signs Vital signs: Vital Signs Temp 98.1 F 10/13/19 07:15 Pulse 84 10/13/19 08:00 Resp 16 10/13/19 08:00 BP 150/83 10/13/19 07:15 Pulse Ox 97 10/13/19 07:15 Intake & Output 10/12/19 10/13/19 10/13/19 18:59 06:59 18:59 Intake Total 1200 Output Total 20 0 Balance 1180 0 Intake: IV 1200 Output: Drainage 0 Right Hand 0 Estimated Blood Loss 20 Other: Voiding Method Toilet Toilet # Voids 2 - Exam Inspection of the right wrist and hand shows bandage intact with no evidence of active bleeding or drainage. She has a drain in place with minimal to no output. Neurovascular status is intact with motor and sensation in all digits, hand and wrist. Less than 2 second capillary refill is present in all digits. - Constitutional General appearance: Present: no acute distress - Labs CBC & Chem 7: 10/11/19 15:32 10/13/19 06:01 Labs: Abnormal Lab Results - Last 24 Hours (Table) 10/12/19 Range/Units 20:02 POC Glucose (mg/dL) 131 H (75-99) mg/dL Microbiology - Last 24 Hours (Table) 10/12/19 14:37 Gram Stain - Preliminary Hand - Right Wound Culture - Preliminary 10/12/19 14:37 Gram Stain - Preliminary Wrist - Right Wound Culture - Preliminary 10/12/19 14:37 Fungal Culture - Preliminary Wrist - Right 10/12/19 14:37 Anaerobic Culture - Preliminary Wrist - Right 10/12/19 14:37 Anaerobic Culture - Preliminary Hand - Right 10/12/19 14:37 Fungal Culture - Preliminary Hand - Right Assessment and Plan (1) Abscess, wrist Narrative/Plan: She'll continue with routine postop orthopedic protocol including pain management, wound care, drain management and medical management. Cultures are pending. Continue IV antibiotics. We'll continue to monitor and make further recommendations as appropriate. Current Visit: Yes Status: Acute Priority: Medium Code(s): L02.419 - CUTANEOUS ABSCESS OF LIMB, UNSPECIFIED SNOMED Code(s): 86220123 Time with Patient: Less than 30 <Azar Costa - Last Filed: 10/13/19 16:53> Objective - Vital Signs Vital signs: Vital Signs Temp 98.1 F 10/13/19 14:00 Pulse 105 H 10/13/19 14:00 Resp 16 10/13/19 14:00 BP 132/79 10/13/19 14:00 Pulse Ox 92 L 10/13/19 14:00 Intake & Output 10/12/19 10/13/19 10/13/19 18:59 06:59 18:59 Intake Total 1200 140 Output Total 20 0 Balance 1180 0 140 Intake: IV 1200 Intake, IV Titration 140 Amount Lactated Ringers 1,000 ml 140 @ 0 mls/hr IV .[facility] Rx#:[id number] Output: Drainage 0 Right Hand 0 Estimated Blood Loss 20 Other: Voiding Method Toilet Toilet # Voids 2 - Labs CBC & Chem 7: 10/11/19 15:32 10/13/19 06:01 Labs: Abnormal Lab Results - Last 24 Hours (Table) 10/12/19 Range/Units 20:02 POC Glucose (mg/dL) 131 H (75-99) mg/dL Microbiology - Last 24 Hours (Table) 10/12/19 14:37 Gram Stain - Preliminary Hand - Right Wound Culture - Preliminary 10/12/19 14:37 Gram Stain - Preliminary Wrist - Right Wound Culture - Preliminary 10/12/19 14:37 Fungal Culture - Preliminary Wrist - Right 10/12/19 14:37 Anaerobic Culture - Preliminary Wrist - Right 10/12/19 14:37 Anaerobic Culture - Preliminary Hand - Right 10/12/19 14:37 Fungal Culture - Preliminary Hand - Right Assessment and Plan Plan: Reviewed and agree with above (amendments/corrections noted below). The patient was subsequently seen and examined by me as well. S: She states that the pain has decreased substantially from its preop level. The numb and tingling sensations have nearly resolved. She has been working on range of motion of her hand and fingers and feels that it is doing well. She feels much better overall and denies any specific issues or concerns. O: Upon entering the room, the patient was sitting up in bed and smiling. Musculoskeletal: The dressings were removed. Moderate serosanguineous (mostly serous) drainage on the dressings. The distal drain came out with the dressings. The incisions are well-approximated with sutures in place. Mild to moderate, appropriate edema. Minimal pain with active and passive thumb, finger & wrist flexion and extension. A: Postoperative day #1 status post I&D of right thumb, hand and wrist with open carpal tunnel release and flexor tenosynovectomy Suppurative flexor tenosynovitis status post right trigger thumb release Intraoperative cultures still pending P: The patient is doing very well. We reviewed the intraoperative findings. New dressings were applied. She was instructed to perform frequent active and passive range of motion of her thumb, fingers and wrist. She may use the hand as tolerated for light daily activities. I will change the dressings again tomorrow and likely remove the remaining d rain. No further surgical debridement planned at this time. Continue empiric IV antibiotics per ID recommendations Anticipate PICC line placement and discharge home on IV antibiotics once cultures have been finalized. Azar Costa D.O. [facility]
[2019-10-13] MEDS ORDERED: VANCOMYCIN TROUGH DUE 1 EACH MISC MISCELLANE ONE (15:00)
--- NOTE | 2019-10-13 15:03 | P.CONS ---
History of Present Illness - History of Present Illness This is a pleasant 54 years old female with past medical history of hyperten yamil, hyperlipidemia, hypothyroidism, emphysema, gastroesophageal reflux disease, migraine. Patient presented with right thumb cellulitis and abscess, she underwent right thumb release for trigger finger and I&D of her deep thenar abscess. Patient already started on vancomycin and she is followed closely by infectious disease team as well Currently patient denies chest pain or dyspnea, no change in urine or bowel habits. She is tolerating diet well. No nausea vomiting. No fever Vitals are stable today. She has mild leukocytosis on admission of 11.1, rest of BMP, liver enzymes were not elevated. High ESR 30 and C-reactive protein at 42 Wound culture were ordered and is still pending. Patient is on IV vancomycin Review of Systems CONSTITUTIONAL: No fever, no malaise, no fatigue. HEENT: No recent visual problems or hearing problems. Denied any sore throat. CARDIOVASCULAR: No orthopnea, PND, no palpitations, no syncope. PULMONARY: No shortness of breath, no cough, no hemoptysis. GASTROINTESTINAL: No diarrhea, no nausea, no vomiting, no abdominal pain. Normoactive bowel sounds. NEUROLOGICAL: No headaches, no weakness, no numbness. HEMATOLOGICAL: Denies any bleeding or petechiae. GENITOURINARY: Denies any burning micturition, frequency, or urgency. MUSCULOSKELETAL/RHEUMATOLOGICAL: Denies any joint pain, swelling, or any muscle pain. Except at her thumb ENDOCRINE: Denies any polyuria or polydipsia. Past Medical History Past Medical History: GERD/Reflux, Hyperlipidemia, Hypertension, Respiratory Disorder, Thyroid Disorder Additional Past Medical History / Comment(s): Emphysema; hypoglycemic- diet controlled History of Any Multi-Drug Resistant Organisms: None Reported Past Surgical History: Back Surgery, Section, Cholecystectomy, Orthopedic Surgery Additional Past Surgical History / Comment(s): back surgery x3, throat sugery x5 , x3, carpal tunnel release, laser eye surgery Past Anesthesia/Blood Transfusion Reactions: No Reported Reaction Past Psychological History: Anxiety, Depression Smoking Status: Former smoker Past Alcohol Use History: None Reported Additional Past Alcohol Use History / Comment(s): smoked 1 1/2-2 pkgs for 30 yrs; quit 2006 Past Drug Use History: None Reported Additional Drug Use History / Comment(s): álvaro smokes marijuana twice a day - Past Family History Mother Family Medical History: No Reported History Medications and Allergies Home Medications Medication Instructions Recorded Confirmed Type Citalopram Hydrobromide [CeleXA] 40 mg PO DAILY 02/20/14 10/11/19 History Cyclobenzaprine [Flexeril] 10 mg PO TID 02/20/14 10/11/19 History Amitriptyline HCl [Elavil] 100 mg PO HS 07/12/15 10/11/19 History HYDROcodone/APAP 7.5-325MG [Norborne 1 tab PO BID 01/25/16 10/11/19 History 7.5-325] Brimonidine Tartrate [Alphagan P 1 drop BOTH EYES BID 10/11/19 10/11/19 History 0.2% Ophth Soln] Butalb/APAP/Caff 50-325-40Mg 1 - 2 tab PO DAILY PRN 10/11/19 10/11/19 History [Fioricet 50-325-40] Latanoprost/Pf [Latanoprost 0.005% 1 drop BOTH EYES HS 10/11/19 10/11/19 History Eye Drop] SUMAtriptan SUCCINATE [Imitrex] 50 mg PO DAILY PRN 10/11/19 10/11/19 History Sucralfate [Carafate] 1 gm PO DAILY 10/11/19 10/11/19 History Allergies Allergy/AdvReac Type Severity Reaction Status Date / Time amoxicillin [Amoxicillin] Allergy Intermediate SOB and Verified 10/11/19 17:29 rash amoxicillin trihydrate Allergy Rash/Hives, Verified 10/11/19 17:29 [From Augmentin] SOB potassium clavulanate Allergy Rash/Hives, Verified 10/11/19 17:29 [From Augmentin] and SOB Physical Exam Vitals: Vital Signs Temp Pulse Pulse Resp BP Pulse Ox 10/13/19 08:00 84 16 10/13/19 07:15 98.1 F 105 H 16 150/83 97 10/13/19 02:14 97.7 F 84 17 112/77 96 10/12/19 19:33 97.7 F 86 17 129/80 98 10/12/19 19:00 18 10/12/19 18:15 88 117/79 10/12/19 18:00 90 114/75 10/12/19 17:45 84 119/76 10/12/19 17:30 88 143/82 10/12/19 17:15 84 134/87 95 10/12/19 17:00 90 129/62 96 10/12/19 16:45 98.0 F 84 144/75 96 10/12/19 15:55 83 16 105/66 97 10/12/19 15:39 97 F L 95 16 95 Intake and Output 10/12/19 10/13/19 10/13/19 22:59 06:59 14:59 Intake Total 100 Output Total 20 0 Balance 80 0 Intake: IV 100 Output: Drainage 0 0 Right Hand 0 0 Estimated Blood Loss 20 Other: Voiding Method Toilet # Voids 2 2 GENERAL: The patient is alert and oriented x3, not in any acute distress. Well developed, well nourished. HEENT: Pupils are round and equally reacting to light. EOMI. No scleral icterus. No conjunctival pallor. Normocephalic, atraumatic. No pharyngeal erythema. No thyromegaly. CARDIOVASCULAR: S1 and S2 present. No murmurs, rubs, or gallops. PULMONARY: Chest is clear to auscultation, no wheezing or crackles. ABDOMEN: Soft, nontender, nondistended, normoactive bowel sounds. No palpable organomegaly. MUSCULOSKELETAL: No joint swelling or deformity. -EXTREMITIES: No cyanosis, clubbing, or pedal edema. Right thumb cellulitis and surgical wound, dressing is in place, rest of examination is deferred to surgery team NEUROLOGICAL: Gross neurological examination did not reveal any focal deficits. SKIN: No rashes. No petechiae Results CBC & Chem 7: 10/11/19 15:32 10/13/19 06:01 Labs: Abnormal Lab Results - Last 24 Hours (Table) 10/12/19 Range/Units 20:02 POC Glucose (mg/dL) 131 H (75-99) mg/dL Microbiology - Last 24 Hours (Table) 10/12/19 14:37 Gram Stain - Preliminary Hand - Right Wound Culture - Preliminary 10/12/19 14:37 Gram Stain - Preliminary Wrist - Right Wound Culture - Preliminary 10/12/19 14:37 Fungal Culture - Preliminary Wrist - Right 10/12/19 14:37 Anaerobic Culture - Preliminary Wrist - Right 10/12/19 14:37 Anaerobic Culture - Preliminary Hand - Right 10/12/19 14:37 Fungal Culture - Preliminary Hand - Right Assessment and Plan Assessment: Right thumb postop cellulitis and abscess, status post I and D Right thumb trigger finger status post trigger thumb release Hypertension Hyperlipidemia migraine Emphysema History of gastroesophageal reflux disease History of Anxiety, depression not an active issue Plan: This is a pleasant 54 years old female presents with right thumb select is an abscess. Patient is currently on IV vancomycin and infectious disease R following the case closely. Continue with postop treatment as per primary surgical team including pain management. Labs and medication were reviewed.. Continue same treatment. Continue with symptomatic treatment. Resume home medication. Monitor lytes and vitals. DVT and GI prophylaxis. Further recommendations of the clinical course of the patient DVT prophylaxis: Subcutaneous Lovenox GI Prophylaxis: Carafate
--- NOTE | 2019-10-13 18:51 | PN ---
PROGRESS NOTE DATE OF SERVICE: 10/13/2019. REASON FOR FOLLOWUP: Right thumb base abscess and cellulitis. INTERVAL HISTORY: Patient is currently afebrile. The patient overall is feeling better. The patient denies having any chest pain. No shortness or breath or cough and pain to the right hand is currently controlled. PHYSICAL EXAMINATION: Blood pressure 132/79, pulse 84, temperature is 98.1. She is 92% on room air. General description is a middle-aged female lying in bed in no distress. Respiratory system: Unlabored breathing. Clear to auscultation anteriorly. HEART: S1, S2. Regular rate and rhythm. Abdomen: Soft, no tenderness. Right hand is currently dressed up with postop dressing. No drainage on the dressing. LABS: Vanco trough is 17.8, cultures currently pending. DIAGNOSTIC IMPRESSION AND PLAN: Patient with right hand infection at the base of the thumb with recent trigger finger release, status post drainage of the abscess. Waiting for the culture to finalize. Keep the patient on Vancomycin adjusting antibiotic further on the basis of the culture report. Continue supportive care. MMODL / IJN: [id number] /
[2019-10-13] MEDS: AMITRIPTYLINE HCL 50 MG TAB PO SCH (20:39)
[2019-10-13] MEDS: LATANOPROST 0.005% OPHTH DROPS 2.5 ML BTL BOTH EYES SCH (20:40)
[2019-10-14] MEDS: VANCOMYCIN 1,500 MG in SODIUM CHLORIDE 0.9% 250 ML IVPB SCH ×2 (04:23→16:08)
[2019-10-14] MEDS: HYDROcodone/APAP 7.5-325MG 1 EACH TAB PO PRN ×3 (06:26→17:59)
[2019-10-14 07:36] LABS: Basophils % (A) 0 %; Eosinophils # (A) 0.2 k/uL (0-0.7); Eosinophils % (A) 2 %; HCT 35.6 % (34.0-46.0); HGB 12.1 gm/dL (11.4-16.0); Lymphocytes # (A) 2.3 k/uL (1.0-4.8); Lymphocytes % (A) 33 %; MCH 30.6 pg (25.0-35.0); MCHC 33.9 g/dL (31.0-37.0); MCV 90.3 fL (80.0-100.0); Mean Platelet Volume 6.8; Monocytes # (A) 0.4 k/uL (0-1.0); Monocytes % (A) 5 %; Neutrophils % (A) 58 %; Platelet Count 335 k/uL (150-450); RBC 3.94 m/uL (3.80-5.40)
[2019-10-14 07:52] LABS: African American GFR (CKD) >90 (>60 ml/min/1.73 sqM); Anion Gap 5 mmol/L; Blood Urea Nitrogen 8 mg/dL (7-17); Calcium 9.3 mg/dL (8.4-10.2); Carbon Dioxide 25 mmol/L (22-30); Chloride 108 mmol/L (98-107); Glucose 100 mg/dL (74-99); Non-African American GFR(CKD) 84 (>60 ml/min/1.73 sqM); Potassium 4.2 mmol/L (3.5-5.1); Sodium 138 mmol/L (137-145)
[2019-10-14] MEDS: ENOXAPARIN 40 MG/0.4 ML SYRINGE SQ SCH (07:57)
[2019-10-14] MEDS: CYCLOBENZAPRINE 10 MG TAB PO SCH ×3 (07:57→20:42)
[2019-10-14] MEDS: CITALOPRAM HYDROBROMIDE 20 MG TAB PO SCH (07:58)
[2019-10-14] MEDS: BRIMONIDINE TARTRATE 0.2% DROPS 5 ML BTL BOTH EYES SCH ×2 (07:58→20:43)
[2019-10-14] MEDS: SUCRALFATE 1 GM TAB PO SCH (07:58)
--- NOTE | 2019-10-14 10:27 | P.PN ---
<Clive Corey - Last Filed: 10/14/19 10:24> Subjective Progress Note Date: 10/14/19 Principal diagnosis: Status post 1. Incision and drainage of right thumb abscess 2. Open right carpal tunnel release 3. Right median neurolysis 4. Flexor tenosynovectomy - right wrist: * Palmaris longus * Flexor pollicis longus * Flexor digitorum superficialis (FDS) index, middle, ring and small fingers * Flexor digitorum profundus (FDP) index, middle, ring and small fingers Patient is a pleasant 54-year-old female seen at bedside this morning. She has postop day #2 from incision and drainage of right thumb abscess, open right carpal tunnel release, right median neurolysis, and flexor tenosynovectomy - right wrist. She states her pain and swelling continues to be improved versus preoperative. She has no new complaints including numbness, tingling, fever, chills, chest pain or shortness of breath. Objective - Vital Signs Vital signs: Vital Signs Temp 98.2 F 10/14/19 07:35 Pulse 87 10/14/19 07:35 Resp 16 10/14/19 07:59 BP 133/83 10/14/19 07:35 Pulse Ox 96 10/14/19 07:35 Intake & Output 10/13/19 10/14/19 10/14/19 18:59 06:59 18:59 Intake Total 140 Output Total 10 Balance 140 -10 Weight 82.024 kg Intake: Intake, IV Titration 140 Amount Lactated Ringers 1,000 ml 140 @ 0 mls/hr IV .[facility] Rx#:[id number] Output: Drainage 10 Right Hand 10 Other: Voiding Method Toilet Toilet Toilet # Voids 2 - Exam Inspection of the right wrist and hand shows bandage intact with no evidence of active bleeding or drainage. She has a drain in place with minimal output. Neurovascular status is intact with motor and sensation in all digits, hand and wrist. Less than 2 second capillary refill is present in all digits. - Constitutional General appearance: Present: no acute distress - Labs CBC & Chem 7: 10/14/19 06:42 10/14/19 06:42 Labs: Abnormal Lab Results - Last 24 Hours (Table) 10/14/19 Range/Units 06:42 Chloride 108 H (98-107) mmol/L Glucose 100 H (74-99) mg/dL Microbiology - Last 24 Hours (Table) 10/12/19 14:37 Gram Stain - Preliminary Wrist - Right Wound Culture - Preliminary Assessment and Plan (1) Abscess, wrist Narrative/Plan: She'll continue with routine postop orthopedic protocol including pain management, wound care, drain management and medical management/infectious disease. Cultures are pending. Continue IV antibiotics. We'll continue to monitor and make further recommendations as appropriate. Current Visit: Yes Status: Acute Priority: Medium Code(s): L02.419 - CUTANEOUS ABSCESS OF LIMB, UNSPECIFIED SNOMED Code(s): 30352751 Time with Patient: Less than 30 <Azar Costa - Last Filed: 10/14/19 13:55> Objective - Vital Signs Vital signs: Vital Signs Temp 98.2 F 10/14/19 07:35 Pulse 87 10/14/19 07:35 Resp 16 10/14/19 07:59 BP 133/83 10/14/19 07:35 Pulse Ox 96 10/14/19 07:35 Intake & Output 10/13/19 10/14/19 10/14/19 18:59 06:59 18:59 Intake Total 140 Output Total 10 Balance 140 -10 Weight 82.024 kg Intake: Intake, IV Titration 140 Amount Lactated Ringers 1,000 ml 140 @ 0 mls/hr IV .[id number] Rx#:[id number] Output: Drainage 10 Right Hand 10 Other: Voiding Method Toilet Toilet Toilet # Voids 2 - Labs CBC & Chem 7: 10/14/19 06:42 10/14/19 06:42 Labs: Abnormal Lab Results - Last 24 Hours (Table) 10/14/19 Range/Units 06:42 Chloride 108 H (98-107) mmol/L Glucose 100 H (74-99) mg/dL Microbiology - Last 24 Hours (Table) 10/12/19 14:37 Gram Stain - Preliminary Wrist - Right Wound Culture - Preliminary Assessment and Plan Plan: Reviewed and agree with above (amendments/corrections noted below). The patient was subsequently seen and examined by me as well. S: The patient reports continued improvement in both pain and motion. She states that she is feeling much better and is eager to be discharged home. O: The dressings were removed. Mild to moderate serosanguineous shadowing on the dressings, but much less than yesterday. The drain was removed (with about 10 c c in the bulb). Interval decrease in edema. No erythema. Incisions are intact and well-approximated -- no dehiscence. No pain with active IP motion. The patient is able to make a full composite fist without [id number] deficit. A: Postoperative day #2 status post I&D of right thumb, hand and wrist with open carpal tunnel release and flexor tenosynovectomy Suppurative flexor tenosynovitis status post right trigger thumb release P: The patient continues to show clinical improvement. New dressings were applied. Continue active and passive thumb, finger and wrist motion. Intraoperative cultures still pending. Anticipate DC home once final antibiotic plan is in place. Azar Costa D.O. [facility]
--- NOTE | 2019-10-14 11:11 | P.PN ---
Subjective This is a pleasant 54 years old female with past medical history of hypertension, hyperlipidemia, hypothyroidism, emphysema, gastroesophageal reflux disease, migraine. Patient presented with right thumb cellulitis and abscess, she underwent right thumb release for trigger finger and I&D of her deep thenar abscess. Patient already started on vancomycin and she is followed closely by infectious disease team as well Currently patient denies chest pain or dyspnea, no change in urine or bowel habits. She is tolerating diet well. No nausea vomiting. No fever Vitals are stable today. She has mild leukocytosis on admission of 11.1, rest of BMP, liver enzymes were not elevated. High ESR 30 and C-reactive protein at 42 Wound culture were ordered and is still pending. Patient is on IV vancomycin 10/14/2019 90 comfortable in bed, no acute issues overnight. She is passing gases, she had regular bowel movement yesterday, no abdominal pain or vomiting. Vitals are stable and creatinine normal at 0.8, WBC Came back to normal at 7.0K Objective - Vital Signs Vital signs: Vital Signs Temp 98.2 F 10/14/19 07:35 Pulse 87 10/14/19 07:35 Resp 16 10/14/19 07:59 BP 133/83 10/14/19 07:35 Pulse Ox 96 10/14/19 07:35 Intake & Output 10/13/19 10/14/19 10/14/19 18:59 06:59 18:59 Intake Total 140 Output Total 10 Balance 140 -10 Weight 82.024 kg Intake: Intake, IV Titration 140 Amount Lactated Ringers 1,000 ml 140 @ 0 mls/hr IV .[facility] Rx#:[id number] Output: Drainage 10 Right Hand 10 Other: Voiding Method Toilet Toilet Toilet # Voids 2 - Exam GENERAL: The patient is alert and oriented x3, not in any acute distress. Well developed, well nourished. HEENT: Pupils are round and equally reacting to light. EOMI. No scleral icterus. No conjunctival pallor. Normocephalic, atraumatic. No pharyngeal erythema. No thyromegaly. CARDIOVASCULAR: S1 and S2 present. No murmurs, rubs, or gallops. PULMONARY: Chest is clear to auscultation, no wheezing or crackles. ABDOMEN: Soft, nontender, nondistended, normoactive bowel sounds. No palpable organomegaly. MUSCULOSKELETAL: No joint swelling or deformity. -EXTREMITIES: No cyanosis, clubbing, or pedal edema. Right thumb cellulitis and surgical wound, dressing is in place, rest of examination is deferred to surgery team NEUROLOGICAL: Gross neurological examination did not reveal any focal deficits. SKIN: No rashes. No petechiae - Labs CBC & Chem 7: 10/14/19 06:42 10/14/19 06:42 Labs: Abnormal Lab Results - Last 24 Hours (Table) 10/14/19 Range/Units 06:42 Chloride 108 H (98-107) mmol/L Glucose 100 H (74-99) mg/dL Microbiology - Last 24 Hours (Table) 10/12/19 14:37 Gram Stain - Preliminary Wrist - Right Wound Culture - Preliminary Assessment and Plan Assessment: Right thumb postop cellulitis and abscess, status post I and D Right thumb trigger finger status post trigger thumb release Hypertension Hyperlipidemia migraine Emphysema History of gastroesophageal reflux disease History of Anxiety, depression not an active issue Plan: This is a pleasant 54 years old female presents with right thumb select is an abscess. Patient is currently on IV vancomycin and infectious disease R following the case closely. Continue with postop treatment as per primary surgical team including pain management. Labs and medication were reviewed.. Continue same treatment. Continue with symptomatic treatment. Resume home medication. Monitor lytes and vitals. DVT and GI prophylaxis. Further recommendations of the clinical course of the patient DVT prophylaxis: Subcutaneous Lovenox GI Prophylaxis: Carafate
--- NOTE | 2019-10-14 20:23 | PN ---
PROGRESS NOTE DATE OF SERVICE: 10/14/2019 REASON FOR FOLLOW UP: Right hand thumb base surgical debridement infection. INTERVAL HISTORY: The patient is currently afebrile. Patient has been breathing comfortably. Denies any chest pain or cough. No nausea, vomiting, or any diarrhea. No pain to the right hand. PHYSICAL EXAMINATION: Blood pressure 135/76, pulse of 90, temperature 97.3. She is 98% on room air. General description is a middle-aged female lying in bed in no distress. Respiratory system: Unlabored breathing. Clear to auscultation anteriorly. Heart S1, S2. Regular rate and rhythm. Abdomen soft, no tenderness. LABS: Hemoglobin is 12.1, white count 7.0, BUN of 8, creatinine 0.80. Cultures remain still to be pending. DIAGNOSTIC IMPRESSION AND PLAN: Patient with right thumb base surgical site infection, status post drainage of wound. The cultures remain to be negative so far. Currently on vancomycin. We will consider a short course of Rocephin 2 gm daily from midline for 2 weeks with close outpatient followup. MMODL / IJN: [id number] /
[2019-10-14] MEDS: AMITRIPTYLINE HCL 50 MG TAB PO SCH (20:42)
[2019-10-14] MEDS: LATANOPROST 0.005% OPHTH DROPS 2.5 ML BTL BOTH EYES SCH (20:43)
[2019-10-15] MEDS: HYDROcodone/APAP 7.5-325MG 1 EACH TAB PO PRN ×3 (04:54→20:11)
[2019-10-15] MEDS: VANCOMYCIN 1,500 MG in SODIUM CHLORIDE 0.9% 250 ML IVPB SCH ×2 (04:54→16:00)
[2019-10-15 07:19] LABS: African American GFR (CKD) >90 (>60 ml/min/1.73 sqM); Non-African American GFR(CKD) >90 (>60 ml/min/1.73 sqM)
[2019-10-15] MEDS: CYCLOBENZAPRINE 10 MG TAB PO SCH ×3 (09:07→20:11)
[2019-10-15] MEDS: ENOXAPARIN 40 MG/0.4 ML SYRINGE SQ SCH (09:07)
[2019-10-15] MEDS: SUCRALFATE 1 GM TAB PO SCH (09:07)
[2019-10-15] MEDS: BRIMONIDINE TARTRATE 0.2% DROPS 5 ML BTL BOTH EYES SCH ×2 (09:07→20:18)
[2019-10-15] MEDS: CITALOPRAM HYDROBROMIDE 20 MG TAB PO SCH ×2 (09:07→09:15)
--- NOTE | 2019-10-15 10:23 | P.PN ---
Subjective Progress Note Date: 10/15/19 Principal diagnosis: Status post 1. Incision and drainage of right thumb abscess 2. Open right carpal tunnel release 3. Right median neurolysis 4. Flexor tenosynovectomy - right wrist: * Palmaris longus * Flexor pollicis longus * Flexor digitorum superficialis (FDS) index, middle, ring and small fingers * Flexor digitorum profundus (FDP) index, middle, ring and small fingers Patient is a pleasant 54-year-old female seen at bedside this morning. She has postop day #3 from incision and drainage of right thumb abscess, open right carpal tunnel release, right median neurolysis, and flexor tenosynovectomy - right wrist. She states her pain and swelling continues to be improved versus preoperative. She has no new complaints including numbness, tingling, fever, chills, chest pain or shortness of breath. Objective - Vital Signs Vital signs: Vital Signs Temp 98.3 F 10/15/19 08:00 Pulse 90 10/15/19 08:00 Resp 18 10/15/19 08:00 BP 125/80 10/15/19 08:00 Pulse Ox 99 10/15/19 08:00 Intake & Output 10/14/19 10/15/19 10/15/19 18:59 06:59 18:59 Intake Total 140 Output Total 10 Balance 130 Weight 82.024 kg Intake: Intake, IV Titration 140 Amount Lactated Ringers 1,000 ml 140 @ 0 mls/hr IV .[facility] Rx#:[id number] Output: Drainage 10 Right Hand 10 Other: Voiding Method Toilet Toilet # Voids 3 - Exam Inspection of the right wrist and hand shows bandage intact with no evidence of active bleeding or drainage. Neurovascular status is intact with motor and sensation in all digits, hand and wrist. Less than 2 second capillary refill is present in all digits. - Constitutional General appearance: Present: no acute distress - Labs CBC & Chem 7: 10/14/19 06:42 10/15/19 06:49 Labs: Microbiology - Last 24 Hours (Table) 10/12/19 14:37 Gram Stain - Preliminary Hand - Right Wound Culture - Preliminary Presumptive Staph aureus Strep agalactiae - (group b) 10/12/19 14:37 Anaerobic Culture - Preliminary Wrist - Right 10/12/19 14:37 Anaerobic Culture - Preliminary Hand - Right 10/12/19 14:37 Gram Stain - Final Wrist - Right Wound Culture - Final Assessment and Plan (1) Abscess, wrist Narrative/Plan: She'll continue with routine postop orthopedic protocol including pain management, wound care, and medical management/infectious disease. Continue IV antibiotics per infectious disease and she may D/C to home when ok per ID. Current Visit: Yes Status: Acute Priority: Medium Code(s): L02.419 - CUTANEOUS ABSCESS OF LIMB, UNSPECIFIED SNOMED Code(s): 49999323 Time with Patient: Less than 30
--- NOTE | 2019-10-15 12:59 | P.PN ---
Subjective This is a pleasant 54 years old female with past medical history of hypertension, hyperlipidemia, hypothyroidism, emphysema, gastroesophageal reflux disease, migraine. Patient presented with right thumb cellulitis and abscess, she underwent right thumb release for trigger finger and I&D of her deep thenar abscess. Patient already started on vancomycin and she is followed closely by infectious disease team as well Currently patient denies chest pain or dyspnea, no change in urine or bowel habits. She is tolerating diet well. No nausea vomiting. No fever Vitals are stable today. She has mild leukocytosis on admission of 11.1, rest of BMP, liver enzymes were not elevated. High ESR 30 and C-reactive protein at 42 Wound culture were ordered and is still pending. Patient is on IV vancomycin 10/14/2019 90 comfortable in bed, no acute issues overnight. She is passing gases, she had regular bowel movement yesterday, no abdominal pain or vomiting. Vitals are stable and creatinine normal at 0.8, WBC Came back to normal at 7.0K 10/15/2019 patient line bed comfortable, no new complaints.vitals stable, she can move her fingers easily and she feels better, no numbness, dressing is in place, patient is followed closely by ID team. Patient was instructed to follow up with her family Doctor in 1 week after discharge and she agrees with Dr. Jorge 2: Make appointment Objective - Vital Signs Vital signs: Vital Signs Temp 98.3 F 10/15/19 08:00 Pulse 90 10/15/19 08:00 Resp 18 10/15/19 08:00 BP 125/80 10/15/19 08:00 Pulse Ox 99 10/15/19 08:00 Intake & Output 10/14/19 10/15/19 10/15/19 18:59 06:59 18:59 Intake Total 140 Output Total 10 Balance 130 Weight 82.024 kg Intake: Intake, IV Titration 140 Amount Lactated Ringers 1,000 ml 140 @ 0 mls/hr IV .[facility] Rx#:[id number] Output: Drainage 10 Right Hand 10 Other: Voiding Method Toilet Toilet Toilet # Voids 3 - Exam GENERAL: The patient is alert and oriented x3, not in any acute distress. Well developed, well nourished. HEENT: Pupils are round and equally reacting to light. EOMI. No scleral icterus. No conjunctival pallor. Normocephalic, atraumatic. No pharyngeal erythema. No thyromegaly. CARDIOVASCULAR: S1 and S2 present. No murmurs, rubs, or gallops. PULMONARY: Chest is clear to auscultation, no wheezing or crackles. ABDOMEN: Soft, nontender, nondistended, normoactive bowel sounds. No palpable organomegaly. MUSCULOSKELETAL: No joint swelling or deformity. -EXTREMITIES: No cyanosis, clubbing, or pedal edema. Right thumb cellulitis and surgical wound, dressing is in place, rest of examination is deferred to surgery team NEUROLOGICAL: Gross neurological examination did not reveal any focal deficits. SKIN: No rashes. No petechiae - Labs CBC & Chem 7: 10/14/19 06:42 10/15/19 06:49 Labs: Microbiology - Last 24 Hours (Table) 10/12/19 14:37 Gram Stain - Preliminary Hand - Right Wound Culture - Preliminary Presumptive Staph aureus Strep agalactiae - (group b) 10/12/19 14:37 Anaerobic Culture - Preliminary Wrist - Right 10/12/19 14:37 Anaerobic Culture - Preliminary Hand - Right 10/12/19 14:37 Gram Stain - Final Wrist - Right Wound Culture - Final Assessment and Plan Assessment: Right thumb postop cellulitis and abscess, status post I and D Right thumb trigger finger status post trigger thumb release Hypertension Hyperlipidemia migraine Emphysema History of gastroesophageal reflux disease History of Anxiety, depression not an active issue Plan: This is a pleasant 54 years old female presents with right thumb select is an abscess. Patient is currently on IV vancomycin and infectious disease R following the case closely. Continue with postop treatment as per primary surgical team including pain management. Labs and medication were reviewed.. Continue same treatment. Continue with symptomatic treatment. Resume home medication. Monitor lytes and vitals. DVT and GI prophylaxis. Further recommendations of the clinical course of the patient DVT prophylaxis: Subcutaneous Lovenox GI Prophylaxis: Carafate
--- NOTE | 2019-10-15 19:23 | PN ---
PROGRESS NOTE DATE OF SERVICE: 10/15/2019 REASON FOR FOLLOWUP: Right thumb infection. INTERVAL HISTORY: The patient is currently afebrile. The patient has been breathing comfortable. Overall, pain and swelling to the right thumb base have decreased in intensity. No chest pain. No cough. No abdominal pain. No diarrhea. PHYSICAL EXAMINATION: Blood pressure 148/91 with a pulse of 87, temperature 97.4. She is 99% on room air. General description is a middle-aged female up in the room in no distress. RESPIRATORY SYSTEM: Unlabored breathing. Clear to auscultation anteriorly. HEART: S1, S2. Regular rate and rhythm. ABDOMEN: Soft. No tenderness. Right thumb base swelling and redness have slightly decreased. LABS: Hemoglobin is 12.1, white count is 7.0. Creatinine 0.73. Wound culture showing Staphylococcus aureus, sensitivity is pending. DIAGNOSTIC IMPRESSION AND PLAN: Patient with right thumb base abscess status post drainage. We are waiting for the sensitivity of Staphylococcus aureus to determine her discharge antibiotics. She will get a midline for outpatient IV antibiotic therapy. Continue with supportive care. MMODL / IJN: [id number] /
[2019-10-15] MEDS: AMITRIPTYLINE HCL 50 MG TAB PO SCH (20:11)
[2019-10-15] MEDS: LATANOPROST 0.005% OPHTH DROPS 2.5 ML BTL BOTH EYES SCH (20:17)
[2019-10-16] MEDS ORDERED: VANCOMYCIN TROUGH DUE 1 EACH MISC MISCELLANE ONE (03:00)
[2019-10-16] MEDS: VANCOMYCIN 1,500 MG in SODIUM CHLORIDE 0.9% 250 ML IVPB SCH (04:47)
[2019-10-16] MEDS: HYDROcodone/APAP 7.5-325MG 1 EACH TAB PO PRN (04:47)
[2019-10-16 07:56] VITALS: BP 173/98; PULSE 82; RESP 18; TEMP 98
[2019-10-16] MEDS: CITALOPRAM HYDROBROMIDE 20 MG TAB PO SCH (07:58)
[2019-10-16] MEDS: SUCRALFATE 1 GM TAB PO SCH (07:58)
[2019-10-16] MEDS: CYCLOBENZAPRINE 10 MG TAB PO SCH (07:58)
[2019-10-16] MEDS: ENOXAPARIN 40 MG/0.4 ML SYRINGE SQ SCH (07:58)
[2019-10-16] MEDS: BRIMONIDINE TARTRATE 0.2% DROPS 5 ML BTL BOTH EYES SCH (07:59)
--- NOTE | 2019-10-16 09:27 | P.DS ---
Providers Date of admission: 10/11/19 14:49 Expected date of discharge: 10/16/19 Attending physician: Azar Costa DO Consults: 10/11/19 14:18 Consult Physician Routine Consulting Provider: Valdez Pereira Consult Reason/Comments: right thumb post op cellulitis Do you want consulting provider notified?: Yes Placement Type Exists?: Yes 10/11/19 14:21 Consult Physician Routine Consulting Provider: Jb Temple Consult Reason/Comments: medical management Do you want consulting provider notified?: Yes Primary care physician: Rosalva Broussard - Discharge Diagnosis(es) (1) Abscess, wrist Patient was admitted to the OR on 10/12/2019 to undergo incision and drainage of right thumb abscess, open right carpal tunnel release, right median neurolysis, and flexor tenosynovectomy of right wrist. She had failed conservative measures as an outpatient and desired to proceed with elective surgery after given informed consent. She underwent the above procedure which she tolerated well without complication. Postoperative hospital course has remained without complication. On day of discharge she is being discharged on IV antibiotics per infectious disease. She is afebrile, vital signs stable, labs within acceptable ranges, tolerating by mouth meds and diet, voiding without difficulty, positive flatus, denies abdominal pain or calf pain, pain is controlled on oral pain medication and has no new complaints. Wound is benign, neurovascular status is intact, calves are soft and nontender, abdomen soft and nontender. Review of systems is negative for numbness, tingling, fever, chills, chest pain, shortness of breath, nausea, vomiting, dizziness, headaches, slurred speech or other Current Visit: Yes Status: Acute Priority: Medium Procedures: 1. Incision and drainage of right thumb abscess 2. Open right carpal tunnel release 3. Right median neurolysis 4. Flexor tenosynovectomy - right wrist: * Palmaris longus * Flexor pollicis longus * Flexor digitorum superficialis (FDS) index, middle, ring and small fingers * Flexor digitorum profundus (FDP) index, middle, ring and small fingers Patient Condition at Discharge: Good Plan - Discharge Summary Discharge Rx Participant: No New Discharge Prescriptions: No Action Citalopram Hydrobromide [CeleXA] 40 mg PO DAILY Cyclobenzaprine [Flexeril] 10 mg PO TID Amitriptyline HCl [Elavil] 100 mg PO HS HYDROcodone/APAP 7.5-325MG [[place] 7.5-325] 1 tab PO BID Sucralfate [Carafate] 1 gm PO DAILY Brimonidine Tartrate [Alphagan P 0.2% Ophth Soln] 1 drop BOTH EYES BID SUMAtriptan SUCCINATE [Imitrex] 50 mg PO DAILY PRN PRN Reason: Migraine Headache Latanoprost/Pf [Latanoprost 0.005% Eye Drop] 1 drop BOTH EYES HS Butalb/APAP/Caff 50-325-40Mg [Fioricet 50-325-40] 1 - 2 tab PO DAILY PRN PRN Reason: Headache Discharge Medication List Citalopram Hydrobromide [CeleXA] 40 mg PO DAILY 02/20/14 [History] Cyclobenzaprine [Flexeril] 10 mg PO TID 02/20/14 [History] Amitriptyline HCl [Elavil] 100 mg PO HS 07/12/15 [History] HYDROcodone/APAP 7.5-325MG [[place] 7.5-325] 1 tab PO BID 01/25/16 [History] Brimonidine Tartrate [Alphagan P 0.2% Ophth Soln] 1 drop BOTH EYES BID 10/11/19 [History] Butalb/APAP/Caff 50-325-40Mg [Fioricet 50-325-40] 1 - 2 tab PO DAILY PRN 10/11/19 [History] Latanoprost/Pf [Latanoprost 0.005% Eye Drop] 1 drop BOTH EYES HS 10/11/19 [History] SUMAtriptan SUCCINATE [Imitrex] 50 mg PO DAILY PRN 10/11/19 [History] Sucralfate [Carafate] 1 gm PO DAILY 10/11/19 [History] Follow up Appointment(s)/Referral(s): [facility], [NON-STAFF] - Azar Costa DO [Medical Doctor] - 1 Week Activity/Diet/Wound Care/Special Instructions: Keep wound clean and dry Take meds as directed Follow-up with Dr. Costa in office Elevate extremity May shower in 3 days if no bleeding Discharge Disposition: HOME WITH HOME HEALTH SERVICES
--- NOTE | 2019-10-16 11:42 | P.PN ---
Subjective 54 years old female with past medical history of hypertension, hyperlipidemia, hypothyroidism, emphysema, gastroesophageal reflux disease, migraine. Patient presented with right thumb cellulitis and abscess, she underwent right thumb release for trigger finger and I&D of her deep thenar abscess. Patient already started on vancomycin and she is followed closely by infectious disease team as well Currently patient denies chest pain or dyspnea, no change in urine or bowel habits. She is tolerating diet well. No nausea vomiting. No fever Vitals are stable today. She has mild leukocytosis on admission of 11.1, rest of BMP, liver enzymes were not elevated. High ESR 30 and C-reactive protein at 42 Wound culture were ordered and is still pending. Patient is on IV vancomycin 10/14/2019 90 comfortable in bed, no acute issues overnight. She is passing gases, she had regular bowel movement yesterday, no abdominal pain or vomiting. Vitals are stable and creatinine normal at 0.8, WBC Came back to normal at 7.0K 10/15/2019 patient line bed comfortable, no new complaints.vitals stable, she can move her fingers easily and she feels better, no numbness, dressing is in place, patient is followed closely by ID team. Patient was instructed to follow up with her family Doctor in 1 week after discharge and she agrees with Dr. Jorge 2: Make appointment 10/16/2019 No overnight events patient is clinically doing well and patient is being discharged on IV antibiotics. - Exam GENERAL: The patient is alert and oriented x3, not in any acute distress. Well developed, well nourished. HEENT: Pupils are round and equally reacting to light. EOMI. No scleral icterus. No conjunctival pallor. Normocephalic, atraumatic. No pharyngeal erythema. No thyromegaly. CARDIOVASCULAR: S1 and S2 present. No murmurs, rubs, or gallops. PULMONARY: Chest is clear to auscultation, no wheezing or crackles. ABDOMEN: Soft, nontender, nondistended, normoactive bowel sounds. No palpable organomegaly. MUSCULOSKELETAL: No joint swelling or deformity. -EXTREMITIES: No cyanosis, clubbing, or pedal edema. Right thumb cellulitis and surgical wound, dressing is in place, rest of examination is deferred to surgery team NEUROLOGICAL: Gross neurological examination did not reveal any focal deficits. SKIN: No rashes. No petechiae Assessment and Plan Assessment: Right thumb postop cellulitis and abscess, status post I and DThe patient is being discharged on IV antibiotics no overnight events further recommendations from medical perspective. Right thumb trigger finger status post trigger thumb release Hypertension Hyperlipidemia migraine Emphysema History of gastroesophageal reflux disease History of Anxiety, depression not an active issue Objective - Vital Signs Vital signs: Vital Signs Temp 98.0 F 10/16/19 07:55 Pulse 82 10/16/19 07:55 Resp 18 10/16/19 07:55 BP 173/98 10/16/19 07:55 Pulse Ox 99 10/16/19 07:55 Intake & Output 10/15/19 10/16/19 10/16/19 18:59 06:59 18:59 Other: Voiding Method Toilet Toilet Toilet # Voids 1 1 1 - Labs CBC & Chem 7: 10/14/19 06:42 10/15/19 06:49 Labs: Microbiology - Last 24 Hours (Table) 10/12/19 14:37 Gram Stain - Final Hand - Right Wound Culture - Final Staphylococcus aureus Strep agalactiae - (group b)
--- NOTE | 2019-10-16 12:42 | PN ---
PROGRESS NOTE DATE OF SERVICE: 10/16/2019 REASON FOR FOLLOWUP: Right thumb abscess and cellulitis. INTERVAL HISTORY: The patient was seen on rounds this morning. The patient has been afebrile, has been breathing comfortably. Denies having any chest pain or any cough. Pain to the right thumb is currently controlled. PHYSICAL EXAMINATION: Blood pressure is 173/98 with a pulse of 82, temperature 98. She is 99% on room air. General description is a middle-aged female up in the bed in no distress. RESPIRATORY SYSTEM: Unlabored breathing, clear to auscultation anteriorly. HEART: S1, S2. Regular rate and rhythm. ABDOMEN: Soft. LABS: The right hand culture finalized with MSSA and group B strep. DIAGNOSTIC IMPRESSION AND PLAN: Patient with right thumb abscess and cellulitis, status post drainage. Antibiotic is cefazolin 2 grams q.8 hours for weeks. Midline is placed. Follow up in the office in one week. Continue with supportive care. MMODL / IJN: [id number] /
== END 2019-10-16 12:11 | disposition home health service (06) | DRG 857 ==
LOC: 4SSUR 14:49
PROVIDERS: ADMIT Orthopaedic Surgery; ATTEND Orthopaedic Surgery
PROC: 01N50ZZ Release Median Nerve, Open Approach (ICD-10-PCS; principal; 2019-10-12 10:15)
PROC: 0JBJ0ZZ Excision of Right Hand Subcutaneous Tissue and Fascia, Open Approach (ICD-10-PCS; 2019-10-12 10:15)
PROC: 05HF33Z Insertion of Infusion Device into Left Cephalic Vein, Percutaneous Approach (ICD-10-PCS; 2019-10-15)
DX: T81.41XA Infection following a procedure, superficial incisional surgical site, initial encounter (principal); L02.511 Cutaneous abscess of right hand; L03.011 Cellulitis of right finger; G89.29 Other chronic pain; M54.9 Dorsalgia, unspecified; I10 Essential (primary) hypertension; E78.5 Hyperlipidemia, unspecified; K21.9 Gastro-esophageal reflux disease without esophagitis; J43.9 Emphysema, unspecified; F41.9 Anxiety disorder, unspecified; F32.9 Major depressive disorder, single episode, unspecified; G43.909 Migraine, unspecified, not intractable, without status migrainosus; M65.141 Other infective (teno)synovitis, right hand; G56.01 Carpal tunnel syndrome, right upper limb; B95.7 Other staphylococcus as the cause of diseases classified elsewhere; E03.9 Hypothyroidism, unspecified; Z98.890 Other specified postprocedural states; Z90.49 Acquired absence of other specified parts of digestive tract; Z86.69 Personal history of other diseases of the nervous system and sense organs; Z87.891 Personal history of nicotine dependence; Z79.899 Other long term (current) drug therapy; Z88.0 Allergy status to penicillin
CPT/HCPCS: 36410; 64415; 76937; 76942; 80048; 80202; 82565; 85025; 85652; 86140; 87070; 87075; 87077; 87102; 87186; 87205

== ENCOUNTER → 2020-09-16 | Outpatient (CLI) | payer MEDICARE ==
--- NOTE | 2020-09-16 21:31 | CT ---
EXAMINATION TYPE: CT chest w con DATE OF EXAM: 09/16/2020 COMPARISON: 12/14/2018 HISTORY: f/u aneurysm, hx of COPD. CT DLP: 616 mGycm Automated exposure control for dose reduction was used. TECHNIQUE: CT scan of the chest is performed with IV Contrast, patient injected with 100 mL of Isovue 300. MIP Images are created on CT scanner and reviewed. 3D reconstructed images are created on an independent workstation and reviewed. FINDINGS: LUNGS: There are diffuse emphysematous changes. No consolidative pneumonia. No pleural effusion or pn eumothorax. No sizable pulmonary nodule. MEDIASTINUM: There are no greater than 1 cm hilar or mediastinal lymph nodes. Heart size is stable. P ulmonary arteries are normal caliber. Aorta has a normal caliber with mild atherosclerotic changes. T here is no evidence of thoracic aortic aneurysm. Coronary artery calcification noted.. OTHER: Nonspecific increased attenuation involving the peripheral margin of the right lobe the liver may represent focal fatty sparing or a focal area of hyperemia. 5 mm hepatic dome lesions too small to characterize but stable from prior exam. Correlate for fatty infiltration hepatic steatosis. Postc holecystectomy changes are noted. There is marked cortical loss of the left kidney with atrophy corre late for chronic medical renal disease. Chronic rib fractures are seen and there is mild hypertrophic change of the spine. IMPRESSION: 1. Diffuse COPD. 2. Aorta is stable in appearance with no diagnostic evidence of aneurysm. 3. Coronary artery calcification. 4. Hepatic steatosis. 5. Atrophy of the left kidney with a nonobstructing 1.2 cm renal calculus. Correlate for chronic medi mary ellen renal disease.
== END | disposition home or self-care (01) ==
LOC: RADCTMAIN 16:17
PROVIDERS: ATTEND Internal Medicine
DX: J44.9 Chronic obstructive pulmonary disease, unspecified (principal); I25.10 Atherosclerotic heart disease of native coronary artery without angina pectoris; Z88.0 Allergy status to penicillin; Z88.1 Allergy status to other antibiotic agents
CPT/HCPCS: 71260; Q9967

== ENCOUNTER 2021-04-30 12:08 | Emergency (ER) | payer MEDICARE ==
[2021-04-30] MEDS ORDERED: HYDROcodone/APAP 5-325MG 1 EACH TAB PO STA (12:19)
[2021-04-30 12:29] VITALS: PULSE 88; RESP 18; TEMP 98
--- NOTE | 2021-04-30 12:40 | XR ---
EXAMINATION TYPE: XR chest 2V DATE OF EXAM: 04/30/2021 COMPARISON: 07/12/2015 TECHNIQUE: PA and lateral views submitted. HISTORY: Pain FINDINGS: Subsegmental changes left lung base likely related to scar or atelectasis. Hyperinflation of COPD. Bi apical pleural thickening. Heart size normal. Surgical clips in the abdomen. Atherosclerotic change a jeet. IMPRESSION: 1. COPD with basilar atelectasis favored over pneumonia. Correlate with
[2021-04-30 13:04] VITALS: BP 147/82
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
[2021-04-30 14:35] LABS: Phencyclidine Screen,Urine Not Detected (NotDetected); Urn Cannabinoid Scrn Detected (NotDetected)
[2021-04-30 14:36] LABS: Amphetamine Screen,Urine Not Detected (NotDetected); Barbiturate Screen,Urine Not Detected (NotDetected); Benzodiazepines Screen,Urine Not Detected (NotDetected); Cocaine Screen,Urine Not Detected (NotDetected); Methadone Screen, Urine Not Detected (NotDetected); Opiate Screen,Urine Detected (NotDetected); Oxycodone Screen, Urine Not Detected (NotDetected); Tricyclic Antidepressant,Urine Detected (NotDetected)
== END 2021-04-30 14:40 | disposition home or self-care (01) ==
LOC: EC 12:08
DX: F32.9 Major depressive disorder, single episode, unspecified (principal); I10 Essential (primary) hypertension; E78.5 Hyperlipidemia, unspecified; K21.9 Gastro-esophageal reflux disease without esophagitis; E07.9 Disorder of thyroid, unspecified; F41.9 Anxiety disorder, unspecified; F12.90 Cannabis use, unspecified, uncomplicated; Z88.0 Allergy status to penicillin; Z88.1 Allergy status to other antibiotic agents; Z90.49 Acquired absence of other specified parts of digestive tract
CPT/HCPCS: 71046; 80306; 82075; 99284

== ENCOUNTER 2021-05-06 16:13 | Emergency (ER) | payer MEDICARE ==
[2021-05-06 16:25] VITALS: TEMP 98
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
[2021-05-06] MEDS ORDERED: MORPHINE SULFATE 4 MG/ML SYRINGE IVP STA (16:37)
[2021-05-06] MEDS ORDERED: ONDANSETRON 4 MG/2 ML VIAL IVP STA (16:37)
[2021-05-06] MEDS ORDERED: SODIUM CHLORIDE 0.9% 1,000 ML IV ONE (16:37)
[2021-05-06] MEDS ORDERED: SODIUM CHLORIDE 0.9% 1,000 ML IV SCH (16:45)
[2021-05-06 16:59] LABS: Basophils % (A) 0 %; Eosinophils # (A) 0.1 k/uL (0-0.7); Eosinophils % (A) 0 %; HCT 37.1 % (34.0-46.0); HGB 12.2 gm/dL (11.4-16.0); Lymphocytes # (A) 1.2 k/uL (1.0-4.8); Lymphocytes % (A) 7 %; MCH 31.7 pg (25.0-35.0); MCHC 32.9 g/dL (31.0-37.0); MCV 96.4 fL (80.0-100.0); Monocytes # (A) 0.5 k/uL (0-1.0); Monocytes % (A) 3 %; Neutrophils # (A) 14.6 k/uL (1.3-7.7); Neutrophils % (A) 89 %; Platelet Count 390 k/uL (150-450); RBC 3.85 m/uL (3.80-5.40); RDW 13.7 % (11.5-15.5); WBC 16.5 k/uL (3.8-10.6)
[2021-05-06 17:12] LABS: ALT 19 U/L (4-34); AST 37 U/L (14-36); African American GFR (CKD) >90 (>60 ml/min/1.73 sqM); Albumin 3.7 g/dL (3.5-5.0); Alkaline Phosphatase 143 U/L (38-126); Anion Gap 11 mmol/L; Blood Urea Nitrogen 12 mg/dL (7-17); Calcium 9.1 mg/dL (8.4-10.2); Carbon Dioxide 17 mmol/L (22-30); Chloride 108 mmol/L (98-107); Glucose 193 mg/dL (74-99); Lipase 71 U/L (23-300); Non-African American GFR(CKD) >90 (>60 ml/min/1.73 sqM); Potassium 3.5 mmol/L (3.5-5.1); Sodium 136 mmol/L (137-145); Total Bilirubin 0.8 mg/dL (0.2-1.3); Total Protein 6.6 g/dL (6.3-8.2)
[2021-05-06 17:24] VITALS: RESP 18
[2021-05-06] MEDS ORDERED: HYDROmorphone 1 MG/ML 1 ML SYRINGE IVP STA (17:25)
[2021-05-06 17:50] VITALS: BP 150/82; PULSE 129
--- NOTE | 2021-05-06 18:07 | XR ---
EXAMINATION TYPE: XR ribs RT w pa chest xray DATE OF EXAM: 05/06/2021 COMPARISON: NONE HISTORY: Rib pain TECHNIQUE: 5 views FINDINGS: There is some patchy infiltrate and atelectasis at the lung bases. There is poor inspiratio n. There is no pneumothorax. There are nondisplaced fractures of the posterior lateral right fourth a nd fifth and sixth and seventh ribs. There is possible hairline fracture right ninth rib. IMPRESSION: Multiple acute right-sided rib fractures. There is some pleural reaction and atelectasis at both lung bases. Normal heart. No pneumothorax.
--- NOTE | 2021-05-06 18:14 | XR ---
EXAMINATION TYPE: XR KUB DATE OF EXAM: 05/06/2021 COMPARISON: 01/25/2016 HISTORY: Abdominal pain TECHNIQUE: 2 views upright FINDINGS: There is 1 cm calcification over the upper pole left kidney. There are clips from cholecyst ectomy. Bowel gas pattern is normal. There is no sign of intestinal obstruction or pneumoperitoneum. Fecal pattern is normal. There is posterior fusion surgery in the lower lumbar spine with laminectomy defect. There is no evidence of abdominal mass. There is mild subsegmental atelectasis left lung bas e. IMPRESSION: Nonacute abdomen. Calcification over the left kidney not changed.
[2021-05-06] MEDS ORDERED: LIDOCAINE 5% PATCH TOPICAL STA (18:30)
== END 2021-05-06 20:30 | disposition home or self-care (01) ==
LOC: EC 16:13
DX: S22.31XA Fracture of one rib, right side, initial encounter for closed fracture (principal); I10 Essential (primary) hypertension; E78.5 Hyperlipidemia, unspecified; K21.9 Gastro-esophageal reflux disease without esophagitis; E07.9 Disorder of thyroid, unspecified; F41.9 Anxiety disorder, unspecified; F32.9 Major depressive disorder, single episode, unspecified; F12.90 Cannabis use, unspecified, uncomplicated; Z88.0 Allergy status to penicillin; Z88.1 Allergy status to other antibiotic agents; Z90.49 Acquired absence of other specified parts of digestive tract; Y04.2XXA Assault by strike against or bumped into by another person, initial encounter
CPT/HCPCS: 99285; 96374; 96375 ×2; 96361 ×3; 36415; 93005; 80053; 83690; 85025; 71101; 74018; J2270; J2405; J1170

== ENCOUNTER 2022-12-27 21:12 | Emergency (ER) | payer MEDICARE ==
[2022-12-27] MEDS ORDERED: PANTOPRAZOLE 40 MG/10 ML VIAL IVP STA (21:33)
[2022-12-27] MEDS ORDERED: SODIUM CHLORIDE 0.9% 1,000 ML IV STA ×2 (21:33→21:58)
[2022-12-27] MEDS ORDERED: MORPHINE SULFATE 4 MG/ML SYRINGE IVP STA (21:33)
--- NOTE | 2022-12-27 22:01 | ED ---
General Adult HPI - General Chief complaint: Nausea/Vomiting/Diarrhea Stated complaint: Nausea,Vomiting Time Seen by Provider: 12/27/22 21:23 Source: patient, EMS, RN notes reviewed, old records reviewed Mode of arrival: EMS Limitations: no limitations - History of Present Illness Initial comments: Patient is a 57-year-old female with past medical history remarkable for chronic lower extremity pain, hypertension, GERD, COPD who presents emergency Department complaining of persistent nausea, vomiting, right-sided abdominal pain since proximal leg tenderness a.m. this morning. He has been unable to hold anything down. Endorses nonbilious nonbloody emesis. Denies constipation but does endorse nonbloody diarrhea as well.. States of throwing up has caused her to have a large headache which is improved when she does not throw up. Denies chest pain or shortness of breath. Pain does not move her radiate. States she does have a history kidney stones but this feels different. Denies any urinary complaints including hematuria or dysuria. Presents or further evaluation at this time. She received Zofran by EMS as well as fluids and states that her nausea drastically improved after Zofran. - Related Data Home Medications Medication Instructions Recorded Confirmed Citalopram Hydrobromide [CeleXA] 40 mg PO DAILY 02/20/14 05/06/21 Cyclobenzaprine [Flexeril] 10 mg PO TID PRN 02/20/14 05/06/21 Brimonidine Tartrate [Alphagan P 1 drop BOTH EYES BID 10/11/19 05/06/21 0.2% Ophth Soln] Latanoprost/Pf [Latanoprost 0.005% 1 drop BOTH EYES HS 10/11/19 05/06/21 Eye Drop] Albuterol Sulfate [Ventolin HFA] 2 puff INHALATION RT-Q6H PRN 04/30/21 05/06/21 Amitriptyline HCl [Elavil] 50 mg PO HS 04/30/21 05/06/21 HYDROcodone/APAP 10-325MG [[place] 0.5 tab PO BID 04/30/21 05/06/21 10-325] Montelukast [Singulair] 10 mg PO DAILY 04/30/21 05/06/21 risperiDONE [RisperDAL] 0.5 mg PO HS 04/30/21 05/06/21 Previous Rx's Medication Instructions Recorded Lidocaine [Aspercreme Patch] 1 patch TRANSDERM DAILY #30 patch 05/06/21 Ondansetron Odt [Zofran Odt] 4 mg PO Q8HR PRN 3 Days #9 tab 12/28/22 Pantoprazole [Protonix] 40 mg PO DAILY 7 Days #7 tab 12/28/22 Allergies Allergy/AdvReac Type Severity Reaction Status Date / Time amoxicillin [Amoxicillin] Allergy Intermediate SOB and Verified 05/06/21 16:21 rash amoxicillin trihydrate Allergy Rash/Hives, Verified 05/06/21 16:21 [From Augmentin] SOB potassium clavulanate Allergy Rash/Hives, Verified 05/06/21 16:21 [From Augmentin] and SOB Review of Systems ROS Statement: Those systems with pertinent positive or pertinent negative responses have been documented in the HPI. Review of Systems: CONST: Denies fever EYES: Denies blurry vision ENT: Denies nasal congestion C/V: Denies Chest pain RESP: Denies shortness of breath GI: Endorses abdominal pain : Denies dysuria SKIN: Denies rash. MSK: Denies joint pain. NEURO: Denies headache ROS Other: All systems not noted in ROS Statement are negative. Past Medical History Past Medical History: COPD, GERD/Reflux, Hyperlipidemia, Hypertension, Respiratory Disorder, Thyroid Disorder Additional Past Medical History / Comment(s): Emphysema; hypoglycemic- diet controlled History of Any Multi-Drug Resistant Organisms: None Reported Past Surgical History: Back Surgery, Section, Cholecystectomy, Orthopedic Surgery Additional Past Surgical History / Comment(s): back surgery x3, throat sugery x5 , x3, carpal tunnel release, laser eye surgery Past Anesthesia/Blood Transfusion Reactions: No Reported Reaction Past Psychological History: Anxiety, Depression Smoking Status: Never smoker Past Alcohol Use History: None Reported Past Drug Use History: Marijuana - Past Family History Mother Family Medical History: No Reported History General Exam - General Exam Comments Initial Comments: General: Appears in no acute distress. HEAD: Normal with no signs of head trauma. EYES: PERRLA, EOMI, conjunctiva normal, no discharge. ENT: Hearing grossly intact, normal oropharynx. Dry mucous membranes. RESPIRATORY: Clear breath sounds bilaterally. No wheezes, rales, or rhonchi. C/V: Tachycardic with regular rhythm. S1 and S2 auscultated, no edema, peripheral pulses 2+ and intact throughout ABD: Abdomen soft, nondistended. Tender to palpation in the right mid and right lower quadrant. No guarding. No Rebound tenderness. No peritoneal signs. No CVA tenderness to percussion. EXT: Normal range of motion, no obvious deformity SKIN: No rashes or lesions observed on exposed skin. NEURO: Alert and oriented 4. Limitations: no limitations Course Vital Signs 12/27/22 12/27/22 12/27/22 21:18 21:20 21:30 Temperature 99.8 F H Pulse Rate 121 H 125 H 115 H Respiratory 22 18 27 H Rate Blood Pressure 115/79 118/100 127/90 O2 Sat by Pulse 96 95 94 L Oximetry 12/27/22 12/27/22 12/27/22 22:00 22:10 22:42 Temperature 99 F Pulse Rate 122 H 116 H Respiratory 16 Rate Blood Pressure 127/90 151/79 O2 Sat by Pulse Oximetry 12/27/22 12/27/22 12/27/22 22:55 23:20 23:21 Temperature Pulse Rate 115 H Respiratory Rate Blood Pressure 133/91 133/91 O2 Sat by Pulse Oximetry 12/27/22 12/27/22 12/27/22 23:22 23:23 23:24 Temperature Pulse Rate Respiratory Rate Blood Pressure 133/91 133/91 133/91 O2 Sat by Pulse Oximetry 12/27/22 12/27/22 12/27/22 23:25 23:26 23:27 Temperature Pulse Rate Respiratory Rate Blood Pressure 133/91 133/91 133/91 O2 Sat by Pulse Oximetry 12/27/22 12/27/22 12/27/22 23:28 23:29 23:30 Temperature Pulse Rate Respiratory Rate Blood Pressure 133/91 133/91 133/91 O2 Sat by Pulse Oximetry 12/27/22 12/27/22 12/27/22 23:31 23:32 23:33 Temperature Pulse Rate Respiratory Rate Blood Pressure 133/91 133/91 133/91 O2 Sat by Pulse Oximetry 12/27/22 12/27/22 12/27/22 23:35 23:36 23:37 Temperature Pulse Rate 124 H 118 H Respiratory 43 H 24 25 H Rate Blood Pressure O2 Sat by Pulse 94 L 98 Oximetry 12/27/22 12/27/22 12/27/22 23:38 23:39 23:40 Temperature Pulse Rate 115 H 112 H 112 H Respiratory 24 19 22 Rate Blood Pressure O2 Sat by Pulse 97 97 97 Oximetry 12/27/22 12/27/22 12/27/22 23:41 23:42 23:43 Temperature Pulse Rate 108 H 112 H 112 H Respiratory 25 H 18 23 Rate Blood Pressure O2 Sat by Pulse 97 97 97 Oximetry 12/27/22 12/27/22 12/27/22 23:44 23:45 23:46 Temperature Pulse Rate 112 H 113 H 120 H Respiratory 20 15 19 Rate Blood Pressure O2 Sat by Pulse 97 97 96 Oximetry 12/27/22 12/27/22 12/27/22 23:47 23:48 23:49 Temperature Pulse Rate 121 H 118 H 117 H Respiratory 25 H 21 24 Rate Blood Pressure O2 Sat by Pulse 97 97 98 Oximetry 12/27/22 12/27/22 12/27/22 23:50 23:51 23:52 Temperature Pulse Rate 113 H 112 H 112 H Respiratory 16 17 34 H Rate Blood Pressure O2 Sat by Pulse 96 96 97 Oximetry 12/27/22 12/27/22 12/27/22 23:53 23:54 23:55 Temperature Pulse Rate 133 H 126 H 123 H Respiratory 26 H 22 37 H Rate Blood Pressure O2 Sat by Pulse 95 94 L 94 L Oximetry 12/27/22 12/27/22 12/27/22 23:56 23:57 23:58 Temperature Pulse Rate 120 H 117 H 115 H Respiratory 52 H 36 H 41 H Rate Blood Pressure O2 Sat by Pulse 97 97 98 Oximetry 12/27/22 12/28/22 12/28/22 23:59 00:00 00:01 Temperature Pulse Rate 116 H 114 H 112 H Respiratory 34 H 28 H 40 H Rate Blood Pressure O2 Sat by Pulse 97 97 96 Oximetry 12/28/22 12/28/22 12/28/22 00:02 00:03 00:08 Temperature Pulse Rate 117 H 114 H 115 H Respiratory 30 H 22 20 Rate Blood Pressure 154/96 154/96 154/96 O2 Sat by Pulse 97 98 97 Oximetry Medical Decision Making - Medical Decision Making Was pt. sent in by a medical professional or institution (, PA, AIRCRAFT REFUELER, urgent care, hospital, or retirement...) When possible be specific @ -No Did you speak to anyone other than the patient for history (EMS, parent, family, police, friend...)? What history was obtained from this source @ -No Did you review nursing and triage notes (agree or disagree)? Why? @ -I reviewed and agree with nursing and triage notes Were old charts reviewed (outside hosp., previous admission, EMS record, old EKG, old radiological studies, urgent care reports/EKG's, retirement records)? Report findings @ -Old chart reviewed from April 2021 including EKG Differential Diagnosis (chest pain, altered mental status, abdominal pain women, abdominal pain men, vaginal bleeding, weakness, fever, dyspnea, syncope, headache, dizziness, GI bleed, back pain, seizure, CVA, palpatations, mental health, musculoskeletal)? @ -Differential Abdominal Pain Women: Appendicitis, Cholecystitis, diverticulosis, ischemic bowel, pancreatitis, hepatitis, UTI, gastroenteritis, AAA, incarcerated hernia, bowel obstruction, constipation, inflammatory bowel, hepatitis, peptic ulcer disease, splenic infarction, perforated viscus, vulvitis, ovarian torsion, PID, kidney stone, placenta abruption, this is not meant to be an all-inclusive list EKG interpreted by me (3pts min.). @ -As above X-rays interpreted by me (1pt min.). @ -Chest x-ray reveals no evidence of obvious acute cardio pulmonary process CT interpreted by me (1pt min.). @ -CT abd and pelvis reveals no obvious evidence of acute intra-abdominal process. U/S interpreted by me (1pt. min.). @ -Renal and bladder ultrasound revealed no evidence of obvious hydronephrosis or obstruction. There is a calcification left upper pole of the kidney that is chronic. Imaging interpretation per radiology. What testing was considered but not performed or refused? (CT, X-rays, U/S, labs)? Why? @ -None What meds were considered but not given or refused? Why? @ -None Did you discuss the management of the patient with other professionals (professionals i.e. , PA, AIRCRAFT REFUELER, lab, RT, psych nurse, social media campaign manager, room service associate, teacher, youth corrections officer, casework manager)? Give summary @ -No Was smoking cessation discussed for >3mins.? @ -No Was critical care preformed (if so, how long)? @ -No Were there social determinants of health that impacted care today? How? (Homelessness, low income, unemployed, alcoholism, drug addiction, transportation, low edu. Level, literacy, decrease access to med. care, fci, rehab)? @ -No Was there de-escalation of care discussed even if they declined (Discuss DNR or withdrawal of care, Hospice)? DNR status @ -No What co-morbidities impacted this encounter? (DM, HTN, Smoking, COPD, CAD, Cancer, CVA, ARF, Chemo, Hep., AIDS, mental health diagnosis, sleep apnea, morbid obesity)? @ -None Was patient admitted / discharged? Hospital course, mention meds given and route, prescriptions, significant lab abnormalities, going to OR and other pertinent info. @ -Based on the patient's presentation and physical exam, I'm concerned for acute intra-abdominal process for the patient at this time. We will obtain abdominal laboratory studies, screening EKG, ultrasound of the bladder, as well as chest x-ray. Patient was in agreement with this plan. She already received IV Zofran will be symptomatically treated with 2 L fluid bolus, IV morphine, IV Protonix. Patient was in agreement with this plan. Patient's laboratory studies remarkable for a leukocytosis of 13 which may be reactive. Mild lactic acidosis of 2.2 likely secondary to dehydration from nausea, vomiting, diarrhea. Remainder the workup is within acceptable limits. Imaging is unremarkable. On reevaluation, patient is feeling improved. Is tolerating oral intake. Would like to go home. I believe this is reasonable. Patient is tachycardic, she feels improved and would like to leave. Strict return precautions discussed. I will provide the patient with a prescription for due to odt Zofran, Protonix. I instructed the patient to follow up with their PCP in the next 1-3 days. I explained that the patient should return to the emergency department if they experience any worsening symptoms. Strict return precautions were discussed with the patient. The patient expressed understanding of these instructions. I answered all questions that the patient had. The patient was discharged home in good condition with their prescriptions and follow up information. Undiagnosed new problem with uncertain prognosis? @ -No Drug Therapy requiring intensive monitoring for toxicity (Heparin, Nitro, Insulin, Cardizem)? @ -No Were any procedures done? @ -No Diagnosis/symptom? @ -Abdominal pain of unknown etiology, nausea, vomiting, diarrhea Acute, or Chronic, or Acute on Chronic? @ -Acute Uncomplicated (without systemic symptoms) or Complicated (systemic symptoms)? @ -Complicated Side effects of treatment? @ -none Exacerbation, Progression, or Severe Exacerbation] @ -no Poses a threat to life or bodily function? @ -no - Lab Data Result diagrams: 12/27/22 21:55 12/27/22 21:55 Lab Results 12/27/22 12/27/22 12/27/22 Range/Units 21:55 21:55 21:55 WBC 13.3 H (3.8-10.6) k/uL RBC 4.21 (3.80-5.40) m/uL Hgb 13.2 (11.4-16.0) gm/dL Hct 38.3 (34.0-46.0) % MCV 90.9 (80.0-100.0) fL MCH 31.3 (25.0-35.0) pg MCHC 34.4 (31.0-37.0) g/dL RDW 13.2 (11.5-15.5) % Plt Count 279 (150-450) k/uL MPV 7.3 Neutrophils % 86 % Lymphocytes % 10 % Monocytes % 3 % Eosinophils % 0 % Basophils % 0 % Neutrophils # 11.5 H (1.3-7.7) k/uL Lymphocytes # 1.3 (1.0-4.8) k/uL Monocytes # 0.4 (0-1.0) k/uL Eosinophils # 0.0 (0-0.7) k/uL Basophils # 0.0 (0-0.2) k/uL PT 10.4 (9.0-12.0) sec INR 1.0 (<1.2) APTT 22.2 (22.0-30.0) sec Sodium (137-145) mmol/L Potassium (3.5-5.1) mmol/L Chloride (98-107) mmol/L Carbon Dioxide (22-30) mmol/L Anion Gap mmol/L BUN (7-17) mg/dL Creatinine (0.52-1.04) mg/dL Est GFR (CKD-EPI)AfAm (>60 ml/min/1.73 sqM) Est GFR (CKD-EPI)NonAf (>60 ml/min/1.73 sqM) Glucose (74-99) mg/dL POC Glucose (mg/dL) (70-110) mg/dL POC Glu Field Specialist ID Lactic Ac Sepsis Rflx Plasma Lactic Acid Gene (0.7-2.0) mmol/L Calcium (8.4-10.2) mg/dL Total Bilirubin (0.2-1.3) mg/dL AST (14-36) U/L ALT (4-34) U/L Alkaline Phosphatase (38-126) U/L Total Protein (6.3-8.2) g/dL Albumin (3.5-5.0) g/dL Amylase (30-110) U/L Lipase (23-300) U/L Urine Color Light Yellow Urine Appearance Clear (Clear) Urine pH 7.0 (5.0-8.0) Ur Specific [place] 1.008 (1.001-1.035) Urine Protein Negative (Negative) Urine Glucose (UA) Negative (Negative) Urine Ketones Trace H (Negative) Urine Blood Negative (Negative) Urine Nitrite Negative (Negative) Urine Bilirubin Negative (Negative) Urine Urobilinogen <2.0 (<2.0) mg/dL Ur Leukocyte Esterase Negative (Negative) Influenza Type A (PCR) (Not Detectd) Influenza Type B (PCR) (Not Detectd) RSV (PCR) (Not Detectd) SARS-CoV-2 (PCR) (Not Detectd) 12/27/22 12/27/22 12/27/22 Range/Units 21:55 21:55 21:55 WBC (3.8-10.6) k/uL RBC (3.80-5.40) m/uL Hgb (11.4-16.0) gm/dL Hct (34.0-46.0) % MCV (80.0-100.0) fL MCH (25.0-35.0) pg MCHC (31.0-37.0) g/dL RDW (11.5-15.5) % Plt Count (150-450) k/uL MPV Neutrophils % % Lymphocytes % % Monocytes % % Eosinophils % % Basophils % % Neutrophils # (1.3-7.7) k/uL Lymphocytes # (1.0-4.8) k/uL Monocytes # (0-1.0) k/uL Eosinophils # (0-0.7) k/uL Basophils # (0-0.2) k/uL PT (9.0-12.0) sec INR (<1.2) APTT (22.0-30.0) sec Sodium 137 (137-145) mmol/L Potassium 4.0 (3.5-5.1) mmol/L Chloride 104 (98-107) mmol/L Carbon Dioxide 22 (22-30) mmol/L Anion Gap 11 mmol/L BUN 8 (7-17) mg/dL Creatinine 0.67 (0.52-1.04) mg/dL Est GFR (CKD-EPI)AfAm >90 (>60 ml/min/1.73 sqM) Est GFR (CKD-EPI)NonAf >90 (>60 ml/min/1.73 sqM) Glucose 129 H (74-99) mg/dL POC Glucose (mg/dL) (70-110) mg/dL POC Glu Field Specialist ID Lactic Ac Sepsis Rflx Plasma Lactic Acid Gene 2.2 H* (0.7-2.0) mmol/L Calcium 9.3 (8.4-10.2) mg/dL Total Bilirubin 0.6 (0.2-1.3) mg/dL AST 37 H (14-36) U/L ALT 31 (4-34) U/L Alkaline Phosphatase 102 (38-126) U/L Total Protein 7.2 (6.3-8.2) g/dL Albumin 4.4 (3.5-5.0) g/dL Amylase 51 (30-110) U/L Lipase 51 (23-300) U/L Urine Color Urine Appearance (Clear) Urine pH (5.0-8.0) Ur Specific [place] (1.001-1.035) Urine Protein (Negative) Urine Glucose (UA) (Negative) Urine Ketones (Negative) Urine Blood (Negative) Urine Nitrite (Negative) Urine Bilirubin (Negative) Urine Urobilinogen (<2.0) mg/dL Ur Leukocyte Esterase (Negative) Influenza Type A (PCR) Not Detected (Not Detectd) Influenza Type B (PCR) Not Detected (Not Detectd) RSV (PCR) Not Detected (Not Detectd) SARS-CoV-2 (PCR) Not Detected (Not Detectd) 12/27/22 12/27/22 Range/Units 22:28 23:05 WBC (3.8-10.6) k/uL RBC (3.80-5.40) m/uL Hgb (11.4-16.0) gm/dL Hct (34.0-46.0) % MCV (80.0-100.0) fL MCH (25.0-35.0) pg MCHC (31.0-37.0) g/dL RDW (11.5-15.5) % Plt Count (150-450) k/uL MPV Neutrophils % % Lymphocytes % % Monocytes % % Eosinophils % % Basophils % % Neutrophils # (1.3-7.7) k/uL Lymphocytes # (1.0-4.8) k/uL Monocytes # (0-1.0) k/uL Eosinophils # (0-0.7) k/uL Basophils # (0-0.2) k/uL PT (9.0-12.0) sec INR (<1.2) APTT (22.0-30.0) sec Sodium (137-145) mmol/L Potassium (3.5-5.1) mmol/L Chloride (98-107) mmol/L Carbon Dioxide (22-30) mmol/L Anion Gap mmol/L BUN (7-17) mg/dL Creatinine (0.52-1.04) mg/dL Est GFR (CKD-EPI)AfAm (>60 ml/min/1.73 sqM) Est GFR (CKD-EPI)NonAf (>60 ml/min/1.73 sqM) Glucose (74-99) mg/dL POC Glucose (mg/dL) 140 H (70-110) mg/dL POC Glu Field Specialist ID Brandi Rascon Lactic Ac Sepsis Rflx Y Plasma Lactic Acid Gene (0.7-2.0) mmol/L Calcium (8.4-10.2) mg/dL Total Bilirubin (0.2-1.3) mg/dL AST (14-36) U/L ALT (4-34) U/L Alkaline Phosphatase (38-126) U/L Total Protein (6.3-8.2) g/dL Albumin (3.5-5.0) g/dL Amylase (30-110) U/L Lipase (23-300) U/L Urine Color Urine Appearance (Clear) Urine pH (5.0-8.0) Ur Specific [place] (1.001-1.035) Urine Protein (Negative) Urine Glucose (UA) (Negative) Urine Ketones (Negative) Urine Blood (Negative) Urine Nitrite (Negative) Urine Bilirubin (Negative) Urine Urobilinogen (<2.0) mg/dL Ur Leukocyte Esterase (Negative) Influenza Type A (PCR) (Not Detectd) Influenza Type B (PCR) (Not Detectd) RSV (PCR) (Not Detectd) SARS-CoV-2 (PCR) (Not Detectd) - EKG Data -: EKG Interpreted by Me EKG Comments: 12-lead Electrocardiogram Interpretation Note EKG was reviewed and interpreted by myself. 12-lead ECG performed at 2124 is interpreted by me as revealing sinus tachycardia at a rate of 118 beats per minute. [place] is normal. TX interval is 137 ms, QRS duration is 93 ms, QTc is 399 ms.. There were no ST or T wave abnormalities to suggest myocardial ischemia or injury. R wave progression across the precordium was satisfactory. By my interpretation this EKG is non-diagnostic for acute ischemia. Disposition Clinical Impression: Abdominal pain, Nausea vomiting and diarrhea Disposition: HOME SELF-CARE Condition: Good Instructions (If sedation given, give patient instructions): Acute Nausea and Vomiting (ED), Abdominal Pain (ED) Prescriptions: Pantoprazole [Protonix] 40 mg PO DAILY 7 Days #7 tab Ondansetron Odt [Zofran Odt] 4 mg PO Q8HR PRN 3 Days #9 tab PRN Reason: Nausea Is patient prescribed a controlled substance at d/c from ED?: No Referrals: Hu Patel MD [Primary Care Provider] - 1-2 days Time of Disposition: 00:35
--- NOTE | 2022-12-27 22:04 | XR ---
EXAMINATION TYPE: XR chest 2V DATE OF EXAM: 12/27/2022 9:59 PM COMPARISON: Chest radiographs from 05/06/2021 TECHNIQUE: XR chest 2V Frontal and lateral views of the chest. CLINICAL INDICATION:Female, 57 years old with history of abdominal pain; FINDINGS: Lungs/Pleura: There is no evidence of pleural effusion, focal consolidation, or pneumothorax. Pulmonary vascularity: Unremarkable. Heart/mediastinum: Cardiomediastinal silhouette is unremarkable. Musculoskeletal: No acute osseous pathology. IMPRESSION: Chronic changes without acute pulmonary process. No significant change from prior.
[2022-12-27 22:23] LABS: Basophils % (A) 0 %; Eosinophils % (A) 0 %; HCT 38.3 % (34.0-46.0); HGB 13.2 gm/dL (11.4-16.0); Lymphocytes # (A) 1.3 k/uL (1.0-4.8); Lymphocytes % (A) 10 %; MCH 31.3 pg (25.0-35.0); MCHC 34.4 g/dL (31.0-37.0); MCV 90.9 fL (80.0-100.0); Mean Platelet Volume 7.3; Monocytes # (A) 0.4 k/uL (0-1.0); Monocytes % (A) 3 %; Neutrophils # (A) 11.5 k/uL (1.3-7.7); Neutrophils % (A) 86 %; Platelet Count 279 k/uL (150-450); RBC 4.21 m/uL (3.80-5.40); RDW 13.2 % (11.5-15.5); WBC 13.3 k/uL (3.8-10.6)
[2022-12-27 22:30] LABS: Glucose,Whole Blood 140 mg/dL (70-110)
[2022-12-27 22:40] LABS: Partial Thromboplastin Time 22.2 sec (22.0-30.0); Prothrombin Time 10.4 sec (9.0-12.0)
--- NOTE | 2022-12-27 22:40 | US ---
EXAMINATION TYPE: US kidneys/renal and bladder DATE OF EXAM: 12/27/2022 COMPARISON: CT: 01/25/16 CLINICAL INDICATION: Female, 57 years old with history of eval for right hydronephrosis/stone. rt fla nk pain; rt flank pain on and off. Hx of renal stones EXAM MEASUREMENTS: Right Kidney: 10.2 x 4.7 x 5.2 cm Left Kidney: 10.4 x 4.5 x 5.7 cm Right Kidney: No hydronephrosis or masses seen Left Kidney: Cortical thinning present. Echogenic foci seen measuring 1.3 x 1.2 x 0.6cm in sup pole. Seen in prev CT Bladder: wnl Bilateral Jets seen: Yes IMPRESSION: 1. No evidence of obstructive uropathy. 2. Left upper pole calcification as seen on prior CT in 2014.
[2022-12-27 22:43] VITALS: TEMP 99
[2022-12-27 22:49] LABS: ALT 31 U/L (4-34); AST 37 U/L (14-36); African American GFR (CKD) >90 (>60 ml/min/1.73 sqM); Albumin 4.4 g/dL (3.5-5.0); Alkaline Phosphatase 102 U/L (38-126); Amylase 51 U/L (30-110); Anion Gap 11 mmol/L; Blood Urea Nitrogen 8 mg/dL (7-17); Calcium 9.3 mg/dL (8.4-10.2); Carbon Dioxide 22 mmol/L (22-30); Chloride 104 mmol/L (98-107); Glucose 129 mg/dL (74-99); Lipase 51 U/L (23-300); Non-African American GFR(CKD) >90 (>60 ml/min/1.73 sqM); Sodium 137 mmol/L (137-145); Total Bilirubin 0.6 mg/dL (0.2-1.3); Total Protein 7.2 g/dL (6.3-8.2)
[2022-12-27 22:55] VITALS: PULSE 115
[2022-12-27] MEDS ORDERED: METOCLOPRAMIDE 5 MG/ML 2 ML VIAL IVP STA (22:55)
[2022-12-27] MEDS ORDERED: diphenhydrAMINE 50 MG/ML 1 ML VIAL IVP STA (22:55)
[2022-12-27 23:15] LABS: Appearance,Urine Clear (Clear); Bilirubin,Urine Negative (Negative); Blood,Urine Negative (Negative); Color,Urine Light Yellow; Glucose,Urine (UA) Negative (Negative); Ketones,Urine Trace (Negative); Leukocyte Esterase,Urine Negative (Negative); Nitrite,Urine Negative (Negative); Protein,Urine Negative (Negative); Specific Gravity,Urine 1.008 (1.001-1.035); Urobilinogen,Urine <2.0 mg/dL (<2.0)
--- NOTE | 2022-12-27 23:57 | CT ---
EXAMINATION TYPE: CT abdomen pelvis w con CT DLP: 1308.7 mGycm, Automated exposure control for dose reduction was used. DATE OF EXAM: 12/27/2022 11:37 PM COMPARISON: CT abdomen pelvis most recent from 01/25/2016 CLINICAL INDICATION:Female, 57 years old with history of abd pain RLQ; ABD PAIN TECHNIQUE: Axial CT of the abdomen and pelvis. Sagittal and coronal reformats were created on a [employer] workstation. Contrast used:100 mL of Isovue 300 with IV Contrast, Oral contrast used: without Oral Contrast FINDINGS: LOWER CHEST: Unremarkable ABDOMEN LIVER: Diffusely hypoattenuating parenchyma. GALLBLADDER AND BILE DUCTS: The gallbladder appears surgically absent. PANCREAS: Unremarkable. SPLEEN: Unremarkable. ADRENAL GLANDS: Unremarkable. KIDNEYS AND URETERS: r atrophic left kidney with cortical thinning and multiple areas. There is nonob structing calculi measuring up to 5 mm with larger calculus measuring up to 12 mm in the superior kid heriberto. The right kidney is within normal limits for size and cortical thickness. The ureters bilaterall y appear unremarkable. PELVIS BLADDER: Unremarkable REPRODUCTIVE: Unremarkable. ABDOMEN & PELVIS STOMACH AND BOWEL: No evidence of bowel obstruction. Scattered colonic diverticula. Colon is relative ly decompressed extending from the mid transverse colon to the rectum. Fluid within the cecum. The ap pendix is normal. Second portion duodenal diverticulum is present. Because of fat deposition is seen throughout the colon bundy. PERITONEUM/RETROPERITONEUM: No evidence of pneumoperitoneum or free fluid. VASCULATURE: Moderate atherosclerotic calcifications are present throughout the abdominal aorta and i ts branches. No evidence of aortic aneurysm. MUSCULOSKELETAL: No acute osseous abnormalities LYMPH NODES: No gross evidence for lymphadenopathy. SOFT TISSUE/ABDOMINAL WALL: Unremarkable IMPRESSION: 1. No acute right lower quadrant process to explain the patient's pain. The appendix appears normal. There is no right obstructive uropathy. 2. Few scattered colonic diverticula. 3. Post surgical changes to the spine. Hardware appears intact. 4. Hepatic steatosis. 5. Second portion duodenal diverticulum
[2022-12-28 00:10] VITALS: BP 154/96; RESP 20
== END 2022-12-28 00:56 | disposition home or self-care (01) ==
LOC: EC 21:12
DX: R11.2 Nausea with vomiting, unspecified (principal); R19.7 Diarrhea, unspecified; R10.31 Right lower quadrant pain; E87.20 Acidosis, unspecified; I10 Essential (primary) hypertension; J43.9 Emphysema, unspecified; F32.A Depression, unspecified; F41.9 Anxiety disorder, unspecified; F12.90 Cannabis use, unspecified, uncomplicated; Z20.822 Contact with and (suspected) exposure to COVID-19; Z79.899 Other long term (current) drug therapy; Z88.0 Allergy status to penicillin; Z88.1 Allergy status to other antibiotic agents; Z90.49 Acquired absence of other specified parts of digestive tract
CPT/HCPCS: 36415; 93005; 80053; 82150; 83605; 83690; 85025; 85610; 85730; 81003; 87636; 71046; 76770; 74177; 99285; 96374; 96375 ×3; 96361; J2270; J1200; J2765; C9113; Q9967

== ENCOUNTER 2024-04-17 12:36 | Observation (INO) | payer MEDICARE, OTHER ==
--- NOTE | 2024-04-17 12:52 | ED ---
Abdominal Pain HPI - General Source: patient, RN notes reviewed Mode of arrival: ambulatory Limitations: no limitations <Dena Ramos - Last Filed: 04/17/24 12:52> <Ryann Tucker - Last Filed: 04/17/24 18:43> - General Stated Complaint: lower abd pain Time Seen by Provider: 04/17/24 12:52 - History of Present Illness Initial Comments: Quick note: 58-year-old female presented to the ER with a chief complaint of right lower quadrant abdominal pain. She also endorses associated diarrhea and nausea. She reports this is ongoing for the past 4 days. She states diarrhea started approximately 3 days ago. No known fevers. (Dena Ramos) Pleasant 58-year-old female presenting today for right lower quadrant pain. Patient states started 4 days ago in the lower stomach and had progressed to her right lower quadrant. States that sharp. Worsens with walking, patient states radiates from her thigh up to her stomach when she walks. Loose stools for 3 days, nonbloody. Patient unable to find to have any loose stools. No episodes of emesis noted endorses nausea. No chills or fevers. Denies dysuria or he maturia. Denies vaginal discharge or vaginal bleeding. Chronically take narcotics for chronic back pain states this is not helped her pain. Prior surgeries include a prior cholecystectomy (Ryann Tucker) - Related Data Home Medications Medication Instructions Recorded Confirmed Cyclobenzaprine [Flexeril] 10 mg PO TID 02/20/14 04/17/24 Brimonidine Tartrate [Alphagan P 1 drop BOTH EYES BID 10/11/19 04/17/24 0.2% Ophth Soln] Latanoprost/Pf [Latanoprost 0.005% 1 drop BOTH EYES HS 10/11/19 04/17/24 Eye Drop] Albuterol Sulfate [Ventolin HFA] 2 puff INHALATION RT-Q4H PRN 04/30/21 04/17/24 Amitriptyline HCl [Elavil] 50 mg PO HS 04/30/21 04/17/24 Montelukast [Singulair] 10 mg PO DAILY 04/30/21 04/17/24 Escitalopram [Lexapro] 10 mg PO BID 04/17/24 04/17/24 Gabapentin [Neurontin] 400 mg PO TID 04/17/24 04/17/24 Memantine [Namenda] 5 mg PO DAILY 04/17/24 04/17/24 Rosuvastatin [Crestor] 20 mg PO DAILY 04/17/24 04/17/24 traMADol HCL 50 mg PO QID 04/17/24 04/17/24 Allergies Allergy/AdvReac Type Severity Reaction Status Date / Time amoxicillin [Amoxicillin] Allergy Intermediate SOB and Verified 04/17/24 15:39 rash amoxicillin trihydrate Allergy Rash/Hives, Verified 04/17/24 15:39 [From Augmentin] SOB potassium clavulanate Allergy Rash/Hives, Verified 04/17/24 15:39 [From Augmentin] and SOB Review of Systems ROS Other: All systems not noted in ROS Statement are negative. <Dena Ramos - Last Filed: 04/17/24 12:52> Constitutional: Denies: fever, chills Respiratory: Denies: dyspnea Cardiovascular: Denies: chest pain Gastrointestinal: Reports: abdominal pain, nausea, diarrhea. Denies: vomiting, constipation, melena, hematochezia Genitourinary: Reports: urgency. Denies: frequency, hematuria <Ryann Tucker - Last Filed: 04/17/24 18:43> ROS Statement: Those systems with pertinent positive or pertinent negative responses have been documented in the HPI. Past Medical History Past Medical History: COPD, GERD/Reflux, Hyperlipidemia, Hypertension, Respiratory Disorder, Thyroid Disorder Additional Past Medical History / Comment(s): Emphysema; hypoglycemic- diet controlled History of Any Multi-Drug Resistant Organisms: None Reported Past Surgical History: Back Surgery, Section, Cholecystectomy, Orthopedic Surgery Additional Past Surgical History / Comment(s): back surgery x3, throat sugery x5 , x3, carpal tunnel release, laser eye surgery Past Anesthesia/Blood Transfusion Reactions: No Reported Reaction Past Psychological History: Anxiety, Depression Smoking Status: Never smoker Past Alcohol Use History: None Reported Past Drug Use History: Marijuana - Past Family History Mother Family Medical History: No Reported History <Dena Ramos - Last Filed: 04/17/24 12:52> General Exam <Dena Ramos - Last Filed: 04/17/24 12:52> <Ryann Tucker - Last Filed: 04/17/24 18:43> - General Exam Comments Initial Comments: Visual Physical Exam Vital signs reviewed General: Well-appearing, nontoxic, no acute distress. Head: Normocephalic, atraumatic Eyes: PERRLA, EOMI ENT: Airway patent Chest: Nonlabored breathing Skin: No visual rash, normal skin tone Neuro: Alert and oriented 3 Musculoskeletal: No gross abnormalities (Dena Ramos) PE: CONSTITUTIONAL: No apparent distress, well appearing SKIN: Warm, dry, no jaundice, hives or petechiae EYES: Pupils are equally round, extraocular movements intact without nystagmus, clear conjunctiva, non-icteric sclera HENT: Normocephalic, atraumatic, moist mucus membranes, oropharynx clear without exudates NECK: , Full range of motion, normal appearance PULMONARY: Clear to auscultation without wheezes, rhonchi, or rales, normal excursion, no accessory muscle use and no stridor CARDIOVASCULAR: Regular rate, rhythm, normal S1 and S2. No appreciated murmurs, rubs or gallops. Strong radial pulses with intact distal perfusion. No lower extremity edema GASTROINTESTINAL: Soft, guarding palpation of the right quadrant, McBurney's point, and no referred tenderness, abdomen nondistended, bowel sounds present, negative CVA tenderness no hepatosplenomegaly GENITOURINARY: MUSCULOSKELETAL: Extremities have no gross deformity, no edema, redness, or swelling. No calf swelling ot TTP. NEUROLOGIC:_a/o x 3, GCS 15, normal mentation and speech. Moves all extremities x 4 without motor or sensory deficit PSYCHIATRIC:_normal mood and affect, thought process is clear and linear (Ryann Tucker) Course Vital Signs 04/17/24 12:49 Temperature 98.3 F Pulse Rate 109 H Respiratory 16 Rate Blood Pressure 125/72 O2 Sat by Pulse 97 Oximetry Medical Decision Making <Dena Ramos - Last Filed: 04/17/24 12:52> - Lab Data Result diagrams: 04/17/24 14:08 04/17/24 14:08 <Ryann Tucker - Last Filed: 04/17/24 18:43> - Medical Decision Making I performed the quick note portion of this chart. Electronically signed by Dena Ramos PA-C (Dena Ramos) Was pt. sent in by a medical professional or institution (MARCELO Miller, BLOWING ENGINEER, urgent care, hospital, or skilled nursing...) When possible be specific @ -No Did you speak to anyone other than the patient for history (EMS, parent, family, police, friend...)? What history was obtained from this source @ -No Did you review nursing and triage notes (agree or disagree)? Why? @ -I reviewed and agree with nursing and triage notes Were old charts reviewed (outside hosp., previous admission, EMS record, old EKG, old radiological studies, urgent care reports/EKG's, skilled nursing records)? Report findings @ -CT scan from 12/28/2023 reviewed, at that time patient presented for right lower quadrant pain it was negative for appendicitis Differential Diagnosis (chest pain, altered mental status, abdominal pain women, abdominal pain men, vaginal bleeding, weakness, fever, dyspnea, syncope, headache, dizziness, GI bleed, back pain, seizure, CVA, palpatations, mental health, musculoskeletal)? @ -Differential Abdominal Pain Women: Diagnosis remains broad over top considerations include appendicitis, diverti culitis, colitis, hepatitis, pancreatitis, UTI, ureterolithiasis bowel obstruction, volvulus, constipation, IBD this is not all-inclusive list EKG interpreted by me (3pts min.). @ -As above X-rays interpreted by me (1pt min.). @ -None done CT interpreted by me (1pt min.). @ -Reviewed CT, appears to be fat stranding on right hemicolon, no appendicitis, no free air U/S interpreted by me (1pt. min.). @ -None done What testing was considered but not performed or refused? (CT, X-rays, U/S, labs)? Why? @ -None What meds were considered but not given or refused? Why? @ -None Did you discuss the management of the patient with other professionals (professionals i.e. MARCELO Miller, BLOWING ENGINEER, lab, RT, psych nurse, sr. social media & mobile manager, network professional, teacher, u[employer] revenue officer, case folder)? Give summary @ -Discussed with Dr. Mackay, surgery Was smoking cessation discussed for >3mins.? @ -No Was critical care preformed (if so, how long)? @ -No Were there social determinants of health that impacted care today? How? (Homelessness, low income, unemployed, alcoholism, drug addiction, transportation, low edu. Level, literacy, decrease access to med. care, correction, rehab)? @ -No Was there de-escalation of care discussed even if they declined (Discuss DNR or withdrawal of care, Hospice)? @ -No What co-morbidities impacted this encounter? (DM, HTN, Smoking, COPD, CAD, Cancer, CVA, ARF, Chemo, Hep., AIDS, mental health diagnosis, sleep apnea, morbid obesity)? @ -Chronic back pain Was patient admitted / discharged? Hospital course, mention meds given and route, prescriptions, significant lab abnormalities, going to OR and other pertinent info. @ -Hospital course Patient is a pleasant 58-year-old female history of chronic back pain presenting for right lower quadrant pain. On my assessment patient is well-appearing and in no acute distress. Exam significant for tenderness palpation of the right lower quadrant with guarding, no palpable masses, no referred pain, negative psoas sign. Negative CVA tenderness. I reviewed labs that were obtained as part of triage protocol significant for leukocytosis white blood cell count 12. Urine shows no signs of infection or blood. Discussed with patient plan for CT and pelvis with contrast, IV fluids, Dilaudid as patient is chronically on opioids so require stronger dose avoid pain medication for pain relief, and Zofran. Patient agreeable with plan CT shows fluid-filled right hemicolon". I discussed with Dr. Mackay, [facility] treating as colitis at this point, IV abx, admit medicine, he will remain on consult. Updated patient, she is agreeable with admission. Pain mildly improved however not resolved. Ordered additional Dilaudid. Discussed with SUBHASH Chakraborty with [facility], who kindly accepts for admission. Patient admitted in stable condition Undiagnosed new problem with uncertain prognosis? @ -No Drug Therapy requiring intensive monitoring for toxicity (Heparin, Nitro, Insulin, Cardizem)? @ -No Were any procedures done? @ -No Diagnosis/symptom? @ -Right Kendall colitis/ Acute, or Chronic, or Acute on Chronic? @ -Acute Uncomplicated (without systemic symptoms) or Complicated (systemic symptoms)? @ -Complicated Side effects of treatment? @ -No Exacerbation, Progression, or Severe Exacerbation? @ -No Poses a threat to life or bodily function? How? (Chest pain, [place], NH, pneumonia, PE, COPD, DKA, ARF, appy, cholecystitis, CVA, Diverticulitis, Homicidal, Suicida l, threat to staff... and all critical care pts) @Yes, especially if early appendicitis (Ryann Tucker) - Lab Data Lab Results 04/17/24 04/17/24 04/17/24 Range/Units 14:08 14:08 14:08 WBC 12.0 H (3.8-10.6) k/uL RBC 4.84 (3.80-5.40) m/uL Hgb 14.3 (11.4-16.0) gm/dL Hct 42.9 (34.0-46.0) % MCV 88.5 (80.0-100.0) fL MCH 29.6 (25.0-35.0) pg MCHC 33.5 (31.0-37.0) g/dL RDW 12.2 (11.5-15.5) % Plt Count 253 (150-450) k/uL MPV 7.3 Neutrophils % 56 % Lymphocytes % 35 % Monocytes % 5 % Eosinophils % 3 % Basophils % 1 % Neutrophils # 6.6 (1.3-7.7) k/uL Lymphocytes # 4.2 (1.0-4.8) k/uL Monocytes # 0.6 (0-1.0) k/uL Eosinophils # 0.3 (0-0.7) k/uL Basophils # 0.1 (0-0.2) k/uL Sodium 139 (137-145) mmol/L Potassium 4.6 (3.5-5.1) mmol/L Chloride 107 (98-107) mmol/L Carbon Dioxide 27 (22-30) mmol/L Anion Gap 5 mmol/L BUN 5 L (7-17) mg/dL Creatinine 0.89 (0.52-1.04) mg/dL Est GFR (CKD-EPI)AfAm 83 (>60 ml/min/1.73 sqM) Est GFR (CKD-EPI)NonAf 72 (>60 ml/min/1.73 sqM) Glucose 100 H (74-99) mg/dL Plasma Lactic Acid Gene 1.2 (0.7-2.0) mmol/L Calcium 9.8 (8.4-10.2) mg/dL Total Bilirubin 0.5 (0.2-1.3) mg/dL AST 27 (14-36) U/L ALT 19 (4-34) U/L Alkaline Phosphatase 80 (38-126) U/L Total Protein 7.0 (6.3-8.2) g/dL Albumin 4.4 (3.5-5.0) g/dL Amylase 55 (30-110) U/L Lipase 66 (23-300) U/L Urine Color Urine Appearance (Clear) Urine pH (5.0-8.0) Ur Specific [place] (1.001-1.035) Urine Protein (Negative) Urine Glucose (UA) (Negative) Urine Ketones (Negative) Urine Blood (Negative) Urine Nitrite (Negative) Urine Bilirubin (Negative) Urine Urobilinogen (<2.0) mg/dL Ur Leukocyte Esterase (Negative) 04/17/24 Range/Units 14:08 WBC (3.8-10.6) k/uL RBC (3.80-5.40) m/uL Hgb (11.4-16.0) gm/dL Hct (34.0-46.0) % MCV (80.0-100.0) fL MCH (25.0-35.0) pg MCHC (31.0-37.0) g/dL RDW (11.5-15.5) % Plt Count (150-450) k/uL MPV Neutrophils % % Lymphocytes % % Monocytes % % Eosinophils % % Basophils % % Neutrophils # (1.3-7.7) k/uL Lymphocytes # (1.0-4.8) k/uL Monocytes # (0-1.0) k/uL Eosinophils # (0-0.7) k/uL Basophils # (0-0.2) k/uL Sodium (137-145) mmol/L Potassium (3.5-5.1) mmol/L Chloride (98-107) mmol/L Carbon Dioxide (22-30) mmol/L Anion Gap mmol/L BUN (7-17) mg/dL Creatinine (0.52-1.04) mg/dL Est GFR (CKD-EPI)AfAm (>60 ml/min/1.73 sqM) Est GFR (CKD-EPI)NonAf (>60 ml/min/1.73 sqM) Glucose (74-99) mg/dL Plasma Lactic Acid Gene (0.7-2.0) mmol/L Calcium (8.4-10.2) mg/dL Total Bilirubin (0.2-1.3) mg/dL AST (14-36) U/L ALT (4-34) U/L Alkaline Phosphatase (38-126) U/L Total Protein (6.3-8.2) g/dL Albumin (3.5-5.0) g/dL Amylase (30-110) U/L Lipase (23-300) U/L Urine Color Colorless Urine Appearance Clear (Clear) Urine pH 6.0 (5.0-8.0) Ur Specific [place] 1.005 (1.001-1.035) Urine Protein Negative (Negative) Urine Glucose (UA) Negative (Negative) Urine Ketones Negative (Negative) Urine Blood Negative (Negative) Urine Nitrite Negative (Negative) Urine Bilirubin Negative (Negative) Urine Urobilinogen <2.0 (<2.0) mg/dL Ur Leukocyte Esterase Negative (Negative) Disposition <Dena Ramos - Last Filed: 04/17/24 12:52> <Ryann Tucker - Last Filed: 04/17/24 18:43> Clinical Impression: Colitis Disposition: ADMITTED IP TO THIS [facility] Condition: Good
[2024-04-17 14:17] LABS: Basophils # (A) 0.1 k/uL (0-0.2); Basophils % (A) 1 %; Eosinophils # (A) 0.3 k/uL (0-0.7); Eosinophils % (A) 3 %; HCT 42.9 % (34.0-46.0); HGB 14.3 gm/dL (11.4-16.0); Lymphocytes # (A) 4.2 k/uL (1.0-4.8); Lymphocytes % (A) 35 %; MCH 29.6 pg (25.0-35.0); MCHC 33.5 g/dL (31.0-37.0); MCV 88.5 fL (80.0-100.0); Mean Platelet Volume 7.3; Monocytes # (A) 0.6 k/uL (0-1.0); Monocytes % (A) 5 %; Neutrophils # (A) 6.6 k/uL (1.3-7.7); Neutrophils % (A) 56 %; Platelet Count 253 k/uL (150-450); RBC 4.84 m/uL (3.80-5.40); RDW 12.2 % (11.5-15.5)
[2024-04-17 14:26] LABS: Appearance,Urine Clear (Clear); Bilirubin,Urine Negative (Negative); Blood,Urine Negative (Negative); Color,Urine Colorless; Glucose,Urine (UA) Negative (Negative); Ketones,Urine Negative (Negative); Leukocyte Esterase,Urine Negative (Negative); Nitrite,Urine Negative (Negative); Protein,Urine Negative (Negative); Specific Gravity,Urine 1.005 (1.001-1.035); Urobilinogen,Urine <2.0 mg/dL (<2.0)
[2024-04-17 14:31] LABS: ALT 19 U/L (4-34); AST 27 U/L (14-36); African American GFR (CKD) 83 (>60 ml/min/1.73 sqM); Albumin 4.4 g/dL (3.5-5.0); Alkaline Phosphatase 80 U/L (38-126); Amylase 55 U/L (30-110); Anion Gap 5 mmol/L; Blood Urea Nitrogen 5 mg/dL (7-17); Calcium 9.8 mg/dL (8.4-10.2); Carbon Dioxide 27 mmol/L (22-30); Chloride 107 mmol/L (98-107); Glucose 100 mg/dL (74-99); Lipase 66 U/L (23-300); Non-African American GFR(CKD) 72 (>60 ml/min/1.73 sqM); Potassium 4.6 mmol/L (3.5-5.1); Sodium 139 mmol/L (137-145); Total Bilirubin 0.5 mg/dL (0.2-1.3)
[2024-04-17] MEDS: HYDROmorphone 1 MG/ML 1 ML SYRINGE IVP STA ×2 (15:44→18:36)
[2024-04-17] MEDS: ONDANSETRON 4 MG/2 ML VIAL IVP STA (15:44)
[2024-04-17] MEDS: SODIUM CHLORIDE 0.9% 1,000 ML IV ONE (15:45)
--- NOTE | 2024-04-17 16:25 | CT ---
EXAMINATION TYPE: CT abdomen pelvis w con DATE OF EXAM: 04/17/2024 COMPARISON: 12/27/2022 HISTORY: RLQ, appy vs diverticulitis. CT DLP: 1275.9 mGycm CONTRAST: CT scan of the abdomen and pelvis is performed without Oral Contrast and with IV Contrast, patient in jected with 100 ml mL of Isovue 300. FINDINGS: LUNG BASES-: No visible nodule. No infiltrate. LIVER/GB: The gallbladder is surgically absent. No space occupying hepatic lesion. Biliary tree is of normal caliber. PANCREAS: No inflammation. No distinct mass. SPLEEN: No splenic enlargement. No lesion seen. ADRENALS: No nodule. No thickening. KIDNEYS/BLADDER: Atrophic changes left kidney with calculus measuring 1.3 cm upper pole. Additional 3 mm calculus lower pole left kidney. The right kidney is free of nephrolithiasis and is of normal siz e. No hydronephrosis. No nephrolithiasis. No distinct renal mass. Urinary bladder grossly unremark able. BOWEL: Normal appendix. Fluid distended right hemicolon. Normal bowel caliber. No inflammation. GENITAL ORGANS: No gross abnormality. LYMPH NODES: No greater than 1cm abdominal or pelvic lymph nodes are appreciated. AORTA: No significant abnormality. OSSEOUS STRUCTURES: Postoperative changes lumbar spine. OTHER: No significant additional abnormality is seen. IMPRESSION: 1. Atrophic changes left kidney with nonobstructing nephrolithiasis. 2.Normal appendix. Fluid distended right hemicolon. [facility] Kandy Chan, , 04/17/2024 4:23 PM
[2024-04-17] MEDS ORDERED: CALCIUM CARBONATE 500 MG CHEWABLE PO PRN (17:29)
[2024-04-17] MEDS ORDERED: ACETAMINOPHEN TAB 325 MG TAB PO PRN (17:29)
[2024-04-17] MEDS ORDERED: NALOXONE 0.4 MG/ML 1 ML VIAL IV PRN (17:29)
[2024-04-17] MEDS ORDERED: MAG HYDROX/AL HYDROX/SIMETH 30 ML CUP PO PRN (17:29)
[2024-04-17] MEDS ORDERED: ALBUTEROL HFA INHALER INHALATION PRN (17:33)
[2024-04-17] MEDS: DEXTROSE 5%-0.45% NACL 1,000 ML IV SCH (18:24)
[2024-04-17] MEDS: CIPROFLOXACIN/DEXTROSE PMX 400 MG in DEXTROSE/WATER 1 200ML.BAG IVPB STA (18:28)
[2024-04-17] MEDS: HYDROmorphone 1 MG/ML 1 ML SYRINGE IVP PRN (18:31)
[2024-04-17] MEDS: traMADol 50 MG TAB PO SCH (18:33)
[2024-04-17] MEDS: metroNIDAZOLE-NS PMX 500 MG in SALINE 1 100ML.BAG IVPB STA (19:35)
[2024-04-17] MEDS: CIPROFLOXACIN/DEXTROSE PMX 400 MG in DEXTROSE/WATER 1 200ML.BAG IVPB SCH (20:57)
[2024-04-17] MEDS: metroNIDAZOLE-NS PMX 500 MG in SALINE 1 100ML.BAG IVPB SCH (20:58)
[2024-04-17] MEDS: CYCLOBENZAPRINE 10 MG TAB PO SCH (21:13)
[2024-04-17] MEDS: GABAPENTIN 400 MG CAP PO SCH (21:13)
[2024-04-17] MEDS: AMITRIPTYLINE HCL 50 MG TAB PO SCH (21:50)
[2024-04-17] MEDS: ESCITALOPRAM 10 MG TAB PO SCH (21:50)
[2024-04-17] MEDS: LATANOPROST 0.005% OPHTH DROPS 2.5 ML BTL BOTH EYES SCH (21:51)
[2024-04-17] MEDS: BRIMONIDINE TARTRATE 0.2% DROPS 5 ML BTL BOTH EYES SCH (21:51)
[2024-04-18 09:10] VITALS: BP 123/68; PULSE 83; RESP 17; TEMP 98.6
[2024-04-18 09:17] LABS: Basophils # (A) 0.03 X 10*3/uL (0.00-0.10); Basophils % (A) 0.5 %; Eosinophils # (A) 0.24 X 10*3/uL (0.04-0.35); Eosinophils % (A) 3.7 %; HCT 39.6 % (37.2-46.3); HGB 13.3 g/dL (12.0-15.0); Lymphocytes # (A) 2.86 X 10*3/uL (0.90-5.00); Lymphocytes % (A) 44.1 %; MCH 29.8 pg (27.0-32.0); MCHC 33.6 g/dL (32.0-37.0); MCV 88.6 FL (80.0-97.0); Mean Platelet Volume 10.6 FL (9.5-12.2); Monocytes # (A) 0.51 X 10*3/uL (0.20-1.00); Monocytes % (A) 7.9 %; NRBC Per 100 WBC 0 X 10*3/uL (0.00-0.01); Neutrophils # (A) 2.82 X 10*3/uL (1.80-7.70); Neutrophils % (A) 43.3 %; Platelet Count 222 X 10*3/uL (140-440); RBC 4.47 X 10*6/uL (4.10-5.20); RDW 12.2 % (11.5-14.5); WBC 6.49 X 10*3/uL (4.50-10.00)
[2024-04-18] MEDS: ATORVASTATIN 40 MG TAB PO SCH (09:18)
[2024-04-18] MEDS: MEMANTINE 5 MG TAB PO SCH (09:18)
[2024-04-18] MEDS: MONTELUKAST 10 MG TAB PO SCH (09:18)
[2024-04-18] MEDS: PANTOPRAZOLE 40 MG/10 ML VIAL IV SCH (09:20)
[2024-04-18 09:36] LABS: Blood Urea Nitrogen 6.6 mg/dL (9.0-27.0); Chloride 110 mmol/L (96-109); Glucose 95 mg/dL (70-110); Potassium 4.7 mmol/L (3.5-5.5); Sodium 144 mmol/L (135-145)
[2024-04-18 09:37] LABS: Calcium 9.4 mg/dL (8.7-10.3); Carbon Dioxide 25.9 mmol/L (21.6-31.8)
[2024-04-18 09:55] LABS: C Reactive Protein <0.30 mg/dL (0.00-0.80); Erythrocyte Sedimentation Rate 7 mm/Hr (0-30)
[2024-04-18] MEDS: HYDROmorphone 0.5 MG/0.5 ML SYRINGE IVP PRN (11:20)
--- NOTE | 2024-04-18 12:31 | P.GSCN ---
History of Present Illness Consult date: 04/18/24 History of present illness: 58-year-old female presented to the emergency department with complaints of right abdominal pain. She states that for the past 3 days she has had loose stool and diarrhea. Denies any significant nausea or vomiting episodes. On workup, patient is found to have a mild leukocytosis with CT of the abdomen pelvis showing a fluid-filled right hemicolon. Appendix appeared normal on CT. She states that she had a colonoscopy and upper endoscopy about 2 or 3 years ago. Review of Systems All systems: negative Past Medical History Past Medical History: COPD, GERD/Reflux, Hyperlipidemia, Hypertension, Respiratory Disorder, Thyroid Disorder Additional Past Medical History / Comment(s): Emphysema; hypoglycemic- diet controlled, neuropathy History of Any Multi-Drug Resistant Organisms: None Reported Past Surgical History: Back Surgery, Section, Cholecystectomy, Orthopedic Surgery Additional Past Surgical History / Comment(s): back surgery x3, throat sugery x5 , x3, carpal tunnel release, laser eye surgery Past Anesthesia/Blood Transfusion Reactions: No Reported Reaction Past Psychological History: Anxiety, Depression Smoking Status: Never smoker Past Alcohol Use History: None Reported Additional Past Alcohol Use History / Comment(s): smoked 1 1/2-2 pkgs for 30 yrs; quit 2006 Past Drug Use History: Marijuana Additional Drug Use History / Comment(s): currantly smokes marijuana twice a day - Past Family History Mother Family Medical History: No Reported History Medications and Allergies Home Medications Medication Instructions Recorded Confirmed Type Cyclobenzaprine [Flexeril] 10 mg PO TID 02/20/14 04/17/24 History Brimonidine Tartrate [Alphagan P 1 drop BOTH EYES BID 10/11/19 04/17/24 History 0.2% Ophth Soln] Latanoprost/Pf [Latanoprost 0.005% 1 drop BOTH EYES HS 10/11/19 04/17/24 History Eye Drop] Albuterol Sulfate [Ventolin HFA] 2 puff INHALATION RT-Q4H PRN 04/30/21 04/17/24 History Amitriptyline HCl [Elavil] 50 mg PO HS 04/30/21 04/17/24 History Montelukast [Singulair] 10 mg PO DAILY 04/30/21 04/17/24 History Escitalopram [Lexapro] 10 mg PO BID 04/17/24 04/17/24 History Gabapentin [Neurontin] 400 mg PO TID 04/17/24 04/17/24 History Memantine [Namenda] 5 mg PO DAILY 04/17/24 04/17/24 History Rosuvastatin [Crestor] 20 mg PO DAILY 04/17/24 04/17/24 History traMADol HCL 50 mg PO QID 04/17/24 04/17/24 History Allergies Allergy/AdvReac Type Severity Reaction Status Date / Time amoxicillin [Amoxicillin] Allergy Intermediate SOB and Verified 04/17/24 15:39 rash amoxicillin trihydrate Allergy Rash/Hives, Verified 04/17/24 15:39 [From Augmentin] SOB potassium clavulanate Allergy Rash/Hives, Verified 04/17/24 15:39 [From Augmentin] and SOB Surgical - Exam Osteopathic Statement: *. No significant issues noted on an osteopathic structural exam other than those noted in the History and Physical/Consult. Vital Signs Temp Pulse Resp BP Pulse Ox 98.3 F 109 H 16 125/72 97 04/17/24 12:49 04/17/24 12:49 04/17/24 12:49 04/17/24 12:49 04/17/24 12:49 - General well developed, well nourished - Eyes normal ocular movement - ENT no hearing loss - Neck trachea midline - Respiratory normal respiratory effort - Abdomen Soft, no significant tenderness, nondistended, no rebound, guarding - Psychiatric oriented to time, oriented to person, oriented to place Results - Labs 04/18/24 04:59 04/18/24 04:59 Abnormal Lab Results - Last 24 Hours (Table) 04/17/24 04/17/24 04/18/24 Range/Units 14:08 14:08 04:59 WBC 12.0 H (3.8-10.6) k/uL Chloride 110 H (96-109) mmol/L BUN 5 L 6.6 L (7-17) mg/dL BUN/Creatinine Ratio 6.60 L (12.00-20.00) Ratio Glucose 100 H (74-99) mg/dL Diabetes panel 04/17/24 04/18/24 Range/Units 14:08 04:59 Sodium 139 144 (137-145) mmol/L Potassium 4.6 4.7 (3.5-5.1) mmol/L Chloride 107 110 H (98-107) mmol/L Carbon Dioxide 27 25.9 (22-30) mmol/L BUN 5 L 6.6 L (7-17) mg/dL Creatinine 0.89 1.0 (0.52-1.04) mg/dL Glucose 100 H 95 (74-99) mg/dL Calcium 9.8 9.4 (8.4-10.2) mg/dL AST 27 (14-36) U/L ALT 19 (4-34) U/L Alkaline Phosphatase 80 (38-126) U/L Total Protein 7.0 (6.3-8.2) g/dL Albumin 4.4 (3.5-5.0) g/dL Calcium panel 04/17/24 04/18/24 Range/Units 14:08 04:59 Calcium 9.8 9.4 (8.4-10.2) mg/dL Albumin 4.4 (3.5-5.0) g/dL Pituitary panel 04/17/24 04/18/24 Range/Units 14:08 04:59 Sodium 139 144 (137-145) mmol/L Potassium 4.6 4.7 (3.5-5.1) mmol/L Chloride 107 110 H (98-107) mmol/L Carbon Dioxide 27 25.9 (22-30) mmol/L BUN 5 L 6.6 L (7-17) mg/dL Creatinine 0.89 1.0 (0.52-1.04) mg/dL Glucose 100 H 95 (74-99) mg/dL Calcium 9.8 9.4 (8.4-10.2) mg/dL Adrenal panel 04/17/24 04/18/24 Range/Units 14:08 04:59 Sodium 139 144 (137-145) mmol/L Potassium 4.6 4.7 (3.5-5.1) mmol/L Chloride 107 110 H (98-107) mmol/L Carbon Dioxide 27 25.9 (22-30) mmol/L BUN 5 L 6.6 L (7-17) mg/dL Creatinine 0.89 1.0 (0.52-1.04) mg/dL Glucose 100 H 95 (74-99) mg/dL Calcium 9.8 9.4 (8.4-10.2) mg/dL Total Bilirubin 0.5 (0.2-1.3) mg/dL AST 27 (14-36) U/L ALT 19 (4-34) U/L Alkaline Phosphatase 80 (38-126) U/L Total Protein 7.0 (6.3-8.2) g/dL Albumin 4.4 (3.5-5.0) g/dL Assessment and Plan Plan: 58-year-old female with likely colitis versus enteritis. She appears to be feeling much better. She is requesting discharge. At this point she is not interested in inpatient endoscopy and this is reasonable as she appears to be quite improved. Recommended Long diet as patient tolerates. She can follow-up as outpatient for endoscopy. No plan for acute surgical intervention.
--- NOTE | 2024-04-18 15:07 | P.HPIM ---
History of Present Illness Please consider this note as combined H&P and discharge summary Diagnoses: Acute right side colitis, with possible elements of enteritis. Could be viral or mild bacterial infection, resolved Dehydration secondary to above improved Left kidney stone 1.3 cm Hyperlipidemia Hypertension Hypothyroidism Hospital course This is a pleasant 58 years old female with past medical history of multiple medical problems as below. Presents because of abdominal pain of 3 days duration. Patient states that her pain is on the right side started 4 days ago, associated with diarrhea for the last 3 days and on average about 3-4 bowel movements per day, her last bowel movement was prior to hospitalization. She does not have bowel movement since then. She had low appetite and was not eating well about she did not throw up. She described abdominal pain as dull, nonradiating with no precipitating or relieving factors. When I saw the patient she was already stating that her abdominal pain is completely resolved and at this she was already evaluated by surgery team and cleared her for discharge. Patient was requesting to be discharged home today. She denies any other complaint, no chest pain or dyspnea. No urinary complaint. No headache dizziness weakness numbness. She denies smoking alcohol. She states she smokes marijuana at times. Vitals are stable and patient is afebrile On admission had leukocytosis of 12,000, improved this morning down to reference range at 6.4. Rest of labs were unremarkable including liver enzymes, BMP, lactic acid, urine analysis She had CT of the abdomen and pelvis showing absent gallbladder, left upper kidney stone 1.3 cm and fluid distended right colon. Procalcitonin is normal at 0.07, inflammatory markers of CRP and ESR are normal. Patient was started on Cipro 400 mg IV twice daily and Flagyl 500 mg IV twice daily in the emergency room. As above patient was asking to be discharged home today. Patient states she does not need more pain medication, she told me she already uses Ultram at home and she has it already at home and that is enough for her. Patient agrees to wait till check her ability to eat, later on patient could tolerate diet well, I was paged by the bedside nurse that patient is requesting to be discharged home. Patient was cleared for discharge by surgery team as above Patient will be discharged on short course of oral Flagyl, we avoided Cipro upon discharge as there is drug drug interaction with Lexapro of QT prolongation. Problems and management plan were discussed with the patient and he verbalized understanding and acceptance Patient was found stable and can be discharged home in guarded prognosis however he needs follow-up as an outpatient. Patient was instructed to follow up with PCP Dr. Patel within one week and patient agrees Patient was instructed to follow-up with surgeon Dr. Mackay and entrepreneur Dr. Flores in 2 weeks for evaluation for possible colonoscopy. Also patient was instructed to follow-up with urologist Dr. Ware for her kidney stone Review of systems CONSTITUTIONAL: No fever, no malaise, no fatigue. HEENT: No recent visual problems or hearing problems. Denied any sore throat. CARDIOVASCULAR: No orthopnea, PND, no palpitations, no syncope. PULMONARY: No shortness of breath, no cough, no hemoptysis. GASTROINTESTINAL: No diarrhea, no nausea, no vomiting, no abdominal pain. Normoactive bowel sounds. NEUROLOGICAL: No headaches, no weakness, no numbness. HEMATOLOGICAL: Denies any bleeding or petechiae. GENITOURINARY: Denies any burning micturition, frequency, or urgency. MUSCULOSKELETAL/RHEUMATOLOGICAL: Denies any joint pain, swelling, or any muscle pain. ENDOCRINE: Denies any polyuria or polydipsia. Physical exam Gen: patient is a AAOx3, no distress CVS: S1-S2, RRR, no murmur Lungs: B/L CTA, no wheezing Abdomen: soft, no distention, no tenderness, positive bowel sounds Extremity: no leg edema or induration Time spent more than 35 minutes Past Medical History Past Medical History: COPD, GERD/Reflux, Hyperlipidemia, Hypertension, Respiratory Disorder, Thyroid Disorder Additional Past Medical History / Comment(s): Emphysema; hypoglycemic- diet controlled, neuropathy History of Any Multi-Drug Resistant Organisms: None Reported Past Surgical History: Back Surgery, Section, Cholecystectomy, Orthopedic Surgery Additional Past Surgical History / Comment(s): back surgery x3, throat sugery x5 , x3, carpal tunnel release, laser eye surgery Past Anesthesia/Blood Transfusion Reactions: No Reported Reaction Past Psychological History: Anxiety, Depression Smoking Status: Never smoker Past Alcohol Use History: None Reported Additional Past Alcohol Use History / Comment(s): smoked 1 1/2-2 pkgs for 30 yrs; quit 2006 Past Drug Use History: Marijuana Additional Drug Use History / Comment(s): álvaro smokes marijuana twice a day - Past Family History Mother Family Medical History: No Reported History Medications and Allergies Home Medications Medication Instructions Recorded Confirmed Type Cyclobenzaprine [Flexeril] 10 mg PO TID 02/20/14 04/17/24 History Brimonidine Tartrate [Alphagan P 1 drop BOTH EYES BID 10/11/19 04/17/24 History 0.2% Ophth Soln] Latanoprost/Pf [Latanoprost 0.005% 1 drop BOTH EYES HS 10/11/19 04/17/24 History Eye Drop] Albuterol Sulfate [Ventolin HFA] 2 puff INHALATION RT-Q4H PRN 04/30/21 04/17/24 History Amitriptyline HCl [Elavil] 50 mg PO HS 04/30/21 04/17/24 History Montelukast [Singulair] 10 mg PO DAILY 04/30/21 04/17/24 History Escitalopram [Lexapro] 10 mg PO BID 04/17/24 04/17/24 History Gabapentin [Neurontin] 400 mg PO TID 04/17/24 04/17/24 History Memantine [Namenda] 5 mg PO DAILY 04/17/24 04/17/24 History Rosuvastatin [Crestor] 20 mg PO DAILY 04/17/24 04/17/24 History traMADol HCL 50 mg PO QID 04/17/24 04/17/24 History Omeprazole [PriLOSEC] 20 mg PO AC-BRKFST #21 cap 04/18/24 Rx metroNIDAZOLE [Flagyl] 375 mg PO BID 3 Days #6 cap 04/18/24 Rx Allergies Allergy/AdvReac Type Severity Reaction Status Date / Time amoxicillin [Amoxicillin] Allergy Intermediate SOB and Verified 04/17/24 15:39 rash amoxicillin trihydrate Allergy Rash/Hives, Verified 04/17/24 15:39 [From Augmentin] SOB potassium clavulanate Allergy Rash/Hives, Verified 04/17/24 15:39 [From Augmentin] and SOB Physical Exam Vitals: Vital Signs Temp Pulse Pulse Resp BP BP Pulse Ox 04/18/24 07:00 98.6 F 83 17 123/68 95 04/18/24 02:20 98.0 F 78 18 122/80 95 04/18/24 01:38 78 04/17/24 21:00 98.0 F 78 19 120/82 97 04/17/24 20:36 77 16 128/74 92 L 04/17/24 19:36 81 18 114/74 91 L Intake and Output 04/17/24 04/18/24 04/18/24 22:59 06:59 14:59 Intake Total 922 Balance 922 Intake: Oral 922 Other: Voiding Method Toilet Toilet # Voids 1 Weight 85.275 kg Results CBC & Chem 7: 04/18/24 04:59 04/18/24 04:59 Labs: Abnormal Lab Results - Last 24 Hours (Table) 04/18/24 Range/Units 04:59 Chloride 110 H (96-109) mmol/L BUN 6.6 L (9.0-27.0) mg/dL BUN/Creatinine Ratio 6.60 L (12.00-20.00) Ratio Thrombosis Risk Factor Assmnt - Choose All That Apply Any of the Below Risk Factors Present?: Yes Each Factor Represents 1 point: Abnormal pulmonary function (COPD), Age 41-60 years, Obesity (BMI >25) Other Risk Factors: No Other congenital or acquired thrombophilia - If yes, enter type in comment: No Thrombosis Risk Factor Assessment Total Risk Factor Score: 3 Thrombosis Risk Factor Assessment Level: Moderate Risk
== END 2024-04-18 15:39 | disposition home or self-care (01) ==
LOC: EC 12:36 → 6NMEDSUR 17:33
PROVIDERS: ADMIT Hospitalist; ATTEND Hospitalist
DX: K52.9 Noninfective gastroenteritis and colitis, unspecified (principal); E86.0 Dehydration; N20.0 Calculus of kidney; E78.5 Hyperlipidemia, unspecified; I10 Essential (primary) hypertension; E03.9 Hypothyroidism, unspecified; F12.90 Cannabis use, unspecified, uncomplicated; J43.9 Emphysema, unspecified; G89.29 Other chronic pain; M54.9 Dorsalgia, unspecified; E66.9 Obesity, unspecified; Z68.27 Body mass index [BMI] 27.0-27.9, adult; Z79.891 Long term (current) use of opiate analgesic; Z79.899 Other long term (current) drug therapy; Z88.8 Allergy status to other drugs, medicaments and biological substances; Z87.891 Personal history of nicotine dependence; Z90.49 Acquired absence of other specified parts of digestive tract
CPT/HCPCS: 36415; 74177; 80048; 80053; 81003; 82150; 83605; 83690; 84145; 85025; 85652; 86140; 87040; 96361; 96365; 96366; 96367; 96375; 96376; 99285

== ENCOUNTER → 2024-06-15 | Day surgery (SDC) | payer MEDICARE ==
[2024-06-13 15:26] VITALS: BMI 25.7
[~2024-06-15] MED LIST changes: -DEXAMETHASONE SOD PHOSPHATE 10 MG/ML 1 ML VIAL IV ONE; -HYDROmorphone 1 MG/ML 1 ML SYRINGE IVP PRN; -LACTATED RINGERS 1,000 ML IV SCH; +LIDOCAINE 1% INJ 10MG/ML (20 ML MDV) ONE; -ONDANSETRON 4 MG/2 ML VIAL IVP ONE; +PROPOFOL 10 MG/ML 20 ML VIAL IV ONE; -Pre Op ABX Message 1 EACH MISC MISCELLANE ONE
[2024-06-15 07:30] VITALS: TEMP 97.8
[2024-06-15] MEDS: IV FLUID CONTINUATION 1,000 ML IV ONE (07:30)
[2024-06-15 07:31] LABS: Glucose,Whole Blood 104 mg/dL (70-110)
[2024-06-15] MEDS: LACTATED RINGERS 1,000 ML IV SCH (07:31)
--- NOTE | 2024-06-15 08:19 | P.PCN ---
Date of Procedure: 06/15/24 Procedure(s) Performed: Brief history: Patient is a pleasant 56-year-old pleasant white female scheduled for an elective upper endoscopy as well as colonoscopy as a part of evaluation of family pain, intermittent nausea vomiting and diarrhea for the last few months duration Procedure performed: Esophagogastroduodenoscopy biopsy Colonoscopy biopsy Preoperative diagnosis: Abdominal pain, intermittent nausea vomiting Chronic diarrhea Anesthesia: [facility] [place] Procedure: After informed consent was obtained from the patient was brought into the endoscopy unit and IV sedation was administered by anesthesia under continuous monitoring. Initially upper endoscopy was done. The Olympus GF 160 video endoscope was inserted inserted into the mouth and esophagus intubated without any difficulty and was gradually advanced into the stomach and duodenum and carefully examined. The bulb and second part of the duodenum appeared normal. Apices were done from the duodenum rule out celiac disease. The scope was then withdrawn into the stomach adequately insufflated with air and upon careful examination the antrum had gastritis and biopsies were done from this area. Mucosa of the body, cardia and fundus appeared normal. The scope was then withdrawn into the esophagus. The GE junction was located at 40 cm to the incisors. It appeared regular with no erythema erosions or ulcerations. Rest of the esophagus appeared normal. Patient tolerated the procedure well. At this time the patient continued to remain sedation. Initial digital rectal examination was normal. Olympus CF 160 video colonoscope was then inserted into the rectum and gradually advanced to the cecum without any difficulty. Careful examination was performed as the scope was gradually being withdrawn. The prep was excellent. The cecum, ascending colon appeared normal. The transverse colon there was a 3 mm polyp that was removed by cold biopsy. Rest of the, transverse colon, descending colon, sigmoid colon and rectum appeared normal. Biopsies were done from the ascending and descending colon rule out microscopic/collagenous colitis. Sigmoid diverticulosis. Retroflexion was performed in the rectum and no lesions were noted. Patient tolerated the procedure well. Impression: 1. Upper endoscopy revealed mild antral gastritis but no evidence of esophagitis or peptic ulcer disease 2. Colonoscopy revealed 3 mm transverse colon polyp status post cold biopsy and scattered sigmoid diverticulosis Recommendations: Findings of this examination were discussed with the patient as well as family. She was advised to follow-up with the biopsy results. She will be seen in the office in 2 weeks. Recommended repeat colonoscopy in 5 years if the biopsy reveals adenoma.
[2024-06-15 09:00] VITALS: BP 128/73; PULSE 76; RESP 16
== END ==
LOC: ORWHC2ENDO 06:44
PROVIDERS: ATTEND Internal Medicine Gastroenterology
DX: K29.70 Gastritis, unspecified, without bleeding (principal); D12.3 Benign neoplasm of transverse colon; K31.9 Disease of stomach and duodenum, unspecified; D72.820 Lymphocytosis (symptomatic); K52.832 Lymphocytic colitis; K57.30 Diverticulosis of large intestine without perforation or abscess without bleeding; I10 Essential (primary) hypertension; E78.5 Hyperlipidemia, unspecified; J44.9 Chronic obstructive pulmonary disease, unspecified; K21.9 Gastro-esophageal reflux disease without esophagitis; F32.A Depression, unspecified; E07.9 Disorder of thyroid, unspecified; F03.94 Unspecified dementia, unspecified severity, with anxiety; Z90.89 Acquired absence of other organs; Z88.0 Allergy status to penicillin; Z79.02 Long term (current) use of antithrombotics/antiplatelets; Z79.890 Hormone replacement therapy; Z79.899 Other long term (current) drug therapy
CPT/HCPCS: 88305; 88342; 45380; 43239; J2003; J2704

== ENCOUNTER → 2024-08-16 | Outpatient (CLI) | payer MEDICARE ==
[2024-08-16 12:17] LABS: Influenza A Not Detected (Not Detectd); Influenza B Not Detected (Not Detectd); RSV Not Detected (Not Detectd)
== END | disposition home or self-care (01) ==
LOC: LABWHC1 11:13
PROVIDERS: ATTEND Nurse Practitioner Family
DX: Z20.822 Contact with and (suspected) exposure to COVID-19 (principal); J44.1 Chronic obstructive pulmonary disease with (acute) exacerbation
CPT/HCPCS: 87636

== ENCOUNTER → 2024-08-16 | Outpatient (CLI) | payer MEDICARE ==
--- NOTE | 2024-08-16 11:05 | XR ---
EXAMINATION TYPE: XR chest 2V DATE OF EXAM: 08/16/2024 10:57 AM COMPARISON: Chest radiographs from 12/27/2022. CLINICAL INDICATION: Female, 58 years old with history of J44.1 COPD; [facility] TECHNIQUE: XR chest 2V Frontal and lateral views of the chest. FINDINGS: Lungs/Pleura: Right middle lobe airspace opacities. eThere is no evidence of pleural effusion, focal consolidation, or pneumothorax. Pulmonary vascularity: Unremarkable. Heart/mediastinum: Cardiomediastinal silhouette is unremarkable. Musculoskeletal: No acute osseous pathology. Other findings: None Lines/Tubes: IMPRESSION: Right middle lobe airspace opacities correlate for pneumonia. [facility], , 08/16/2024 11:03 AM
== END | disposition home or self-care (01) ==
LOC: RADXRMAIN 10:43
PROVIDERS: ATTEND Family Medicine
DX: J44.1 Chronic obstructive pulmonary disease with (acute) exacerbation (principal)
CPT/HCPCS: 71046

== ENCOUNTER → 2025-02-04 | Outpatient (CLI) | payer MEDICARE ==
--- NOTE | 2025-02-04 16:54 | CT ---
EXAMINATION TYPE: CT cervical spine wo con DATE OF EXAM: 02/04/2025 4:10 PM COMPARISON: 02/12/2024. CLINICAL INDICATION: Female, 59 years old with history of M48.02 , M47.812, M62.81; PRE-SURGICAL SCAN , PT STATES SHE HAS MULTIPLE HERNIATED DISCS TECHNIQUE: Axial CT images from the skull base to the inferior aspect of T2 we obtained without intra venous contrast. Coronal and sagittal reformatted images were also reviewed. Contrast used: mL of , (if blank None) Oral contrast used: (if blank None) CT DLP: 496.40 mGycm, Automated exposure control for dose reduction was used. FINDINGS: Fracture: None. Osseous structures: Multilevel degenerative disc disease changes with endplate spurring and disc oste ophyte complex's. Vertebral alignment: Alignment within normal limits. Spinal canal/Neural Foramina: Disc osteophyte complexes at C2-C3 C4-C5 and C5-C6 with at least mild s kristina canal stenosis. Facet joint uncovertebral joint arthropathy scattered throughout the cervical s pine with varying degrees of neural foraminal stenosis. No foraminal stenosis worse at C4-C5 with mod erate to severe bilateral stenosis and at C5-C6 with severe left neural foraminal stenosis. Neck soft tissues: Prevertebral soft tissues are within normal limits. Other: The airway is patent. Moderate centrilobular emphysema changes. IMPRESSION: 1. No evidence of cervical spine fracture. 2. Mild multilevel degenerative disc disease. No foraminal stenosis worse at C4-C5 with moderate to s evere bilateral and C5-C6 with severe left neural foraminal stenosis 3. Moderate emphysema. [facility], , 02/04/2025 4:52 PM
== END | disposition home or self-care (01) ==
LOC: RADCTMAIN 15:46
PROVIDERS: ATTEND Orthopaedic Surgery
DX: M48.02 Spinal stenosis, cervical region (principal); M50.10 Cervical disc disorder with radiculopathy, unspecified cervical region; M47.22 Other spondylosis with radiculopathy, cervical region; J43.2 Centrilobular emphysema
CPT/HCPCS: 72125